=== PATIENT | male | born 1980 | race American Indian/Alaskan Native ===

== ENCOUNTER 2018-06-05 06:22 | Inpatient (IN) | payer OTHER ==
[2018-06-05] MEDS ORDERED: levETIRAcetam 1000mg/100ml NS 100 ML IV ONE (06:27)
[2018-06-05] MEDS ORDERED: Etomidate 20 mg/10ml Inj IV ONE ×2 (06:36→06:37)
[2018-06-05] MEDS ORDERED: Succinylcholine 200 mg/10 ml Inj IV ONE ×2 (06:36→07:03)
[2018-06-05 06:47] LABS: BASO # 0.05 K/mm3 (0.0-2.0); BASO % 0.5 % (0.0-3.0); EOS # 0.3 (0.0-0.7); EOS % 2.5 % (1.5-5.0); GRAN # 2.96 (1.4-6.5); GRAN % 29.9 % (50.0-68.0); HEMOGLOBIN 14.9 g/dL (14.0-18.0); LYMPH # 5.9 (1.2-3.4); LYMPH % 59.8 % (22.0-35.0); MEAN CELL VOLUME 102.4 fl (80.0-105.0); MEAN CORPUSCULAR HEMOGLOBIN 33.1 pg (25.0-35.0); MEAN CORPUSCULAR HGB CONC 32.3 g/dl (31.0-37.0); MEAN PLATELET VOLUME 11.8 fl (7.0-11.0); MONO # 0.7 (0.1-0.6); MONO % 7.3 % (1.0-6.0); RBC 4.5 10^6/uL (3.5-6.1); RED CELL DISTRIBUTION WIDTH 14.3 % (11.5-14.5); WHITE BLOOD COUNT 9.9 10^3/uL (4.5-11.0)
[2018-06-05 06:52] LABS: ALB/GLOB RATIO 1.4 (1.1-1.8); ALBUMIN 5.2 g/dL (3.0-4.8); ALT/SGPT 12 U/L (7-56); AST/SGOT 26 U/L (17-59); BLOOD UREA NITROGEN 11 mg/dL (7-21); CALCIUM 10.8 mg/dL (8.4-10.5); GFR NON-AFRICAN AMERICAN > 60
[2018-06-05] MEDS ORDERED: PHENobarbital 130 mg/ml Inj Syringe IV ONE (07:01)
[2018-06-05] MEDS ORDERED: Etomidate 20 mg/10ml Inj IVP STA (07:03)
[2018-06-05] MEDS ORDERED: PHENobarbital 130 mg/ml Inj Syringe IV STA (07:05)
[2018-06-05] MEDS ORDERED: Propofol 10 mg/ml 1,000 MG/100 ML VIAL ONE (07:16)
[2018-06-05] MEDS: Propofol 10 mg/ml 1,000 MG/100 ML VIAL IV PRN ×2 (07:16→18:51)
[2018-06-05] MEDS ORDERED: Propofol 10 mg/ml 500 MG/50 ML VIAL IV PRN (07:30)
--- NOTE | 2018-06-05 07:43 | ED PDOC ---
Physical Exam Vital Signs Reviewed: Yes Vital Signs Temp Pulse Resp Pulse Ox 06/05/18 06:22 98 F 120 H 20 100 Temperature: Afebrile Blood Pressure: Normal Pulse: Tachycardic Respiratory Rate: Normal Appearance: Positive for: Well-Appearing, Non-Toxic, Comfortable Pain Distress: None Mental Status: Positive for: Alert and Oriented X 3 Finger Stick Blood Glucose: 213 Medical Decision Making ED Course and Treatment: 06/05/18 07:43 Case endorsed to me by Dr. Larry. Patient presented to the emergency department s/p seizure. - Lab Interpretations Lab Results: 06/05/18 06:25 06/05/18 06:25 Lab Results 06/05/18 06:25: Valproic Acid 11 L 06/05/18 06:25: Sodium 145, Potassium 4.1, Chloride 107, Carbon Dioxide 11 L, Anion Gap 31 H, BUN 11, Creatinine 1.0, Est GFR ( Amer) > 60, Est GFR (Non-Af Amer) > 60, Random Glucose 221 H, Calcium 10.8 H, Magnesium 2.2, Total Bilirubin 0.4, AST 26, ALT 12, Alkaline Phosphatase 56, Total Protein 9.0 H, Albumin 5.2 H, Globulin 3.8, Albumin/Globulin Ratio 1.4 06/05/18 06:25: WBC 9.9, RBC 4.50, Hgb 14.9, Hct 46.1, MCV 102.4, MCH 33.1, MCHC 32.3, RDW 14.3, Plt Count 175, MPV 11.8 H, Gran % 29.9 L, Lymph % (Auto) 59.8 H, [place] % (Auto) 7.3 H, Eos % (Auto) 2.5, Baso % (Auto) 0.5, Gran # 2.96, Lymph # (Auto) 5.9 H, [place] # (Auto) 0.7 H, Eos # (Auto) 0.3, Baso # (Auto) 0.05 - RAD Interpretation Radiology Orders: 06/05/18 06:26 HEAD W/O CONTRAST [CT] Stat 06/05/18 06:27 CHEST PORTABLE [RAD] Stat - Medication Orders Current Medication Orders: Propofol (Diprivan) 500 mg in 50 mls @ 2.368 mls/hr IV .Q21H7M PRN; Protocol PRN Reason: TITRATE PER MD ORDER Midazolam 100 mg/100ml in NS (Midazolam 100 Mg/100ml In Ns) 100 mg in 100 mls @ 1 mls/hr IV .Q24H PRN; Protocol PRN Reason: Agitation Lorazepam (Ativan) 2 mg IVP ONCE ONE; Protocol Stop: 06/05/18 06:31 Discontinued Medications Atropine Sulfate (Atropine) 0.5 mg IVP STAT STA Stop: 06/05/18 06:48 Etomidate (Amidate) 30 mg IVP STAT STA Stop: 06/05/18 07:04 Last Admin: 06/05/18 06:40 Dose: 30 mg IVP Administration Document 06/05/18 06:40 RD (Rec: 06/05/18 07:28 RD [id number]) Charges for Administration # of IVP Administrations 1 Levetiracetam (Keppra 1000mg/100ml Ns) 100 mls @ 440 mls/hr IV ONCE ONE Stop: 06/05/18 06:40 Last Admin: 06/05/18 06:27 Dose: 440 mls/hr eMAR Start Stop Document 06/05/18 06:27 RD (Rec: 06/05/18 07:29 RD [id number]) Intravenous Solution Start Date 06/05/18 Start Time 06:27 Lorazepam (Ativan) 2 mg IVP STAT STA Stop: 06/05/18 06:27 Last Admin: 06/05/18 06:27 Dose: 2 mg IVP Administration Document 06/05/18 06:27 RD (Rec: 06/05/18 07:29 RD [facility] [id number]) Charges for Administration # of IVP Administrations 1 Phenobarbital (Phenobarbital Inj) 120 mg IV ONCE STA Stop: 06/05/18 07:06 Last Admin: 06/05/18 07:05 Dose: 120 mg eMAR Start Stop Document 06/05/18 07:05 RD (Rec: 06/05/18 07:31 RD [id number]) Intravenous Solution Start Date 06/05/18 Start Time 07:05 Succinylcholine Chloride (Quelicin) 120 mg IV ONCE ONE Stop: 06/05/18 07:04 Last Admin: 06/05/18 06:55 Dose: 120 mg eMAR Start Stop Document 06/05/18 06:55 RD (Rec: 06/05/18 07:28 RD [id number]) Intravenous Solution Start Date 06/05/18 Start Time 06:55 Disposition/Present on Arrival - Present on Arrival History of DVT/PE: No History of Uncontrolled Diabetes: No Urinary Catheter: No History of Decub. Ulcer: No History Surgical Site Infection Following: None - Disposition
--- NOTE | 2018-06-05 07:46 | CP.PCM.CON ---
<Bebeto Paulson - Last Filed: 06/05/18 11:38> History of Present Illness - History of Present Illness History of Present Illness: Bebeto Paulson, PGY-1 Consult Note for ICU CC: Seizure HPI: 37 M with reported past medical history of seizures, hypothyroid and manic bipolar disorder who presents in midst of tonic-clonic seizure-like activity. Patient last seizure was 1.5 years ago and patient is compliant with medications per family member. Patient was intubated and sedated at time of evaluation in ED so further ROS was per report and family member. Patient recently began taking Depakote last week in addition to his Keppra. Patient received Ativan, Keppra, and Phenobarbital in the ED in order to subdue seizure. Tongue biting and urinary incontinence were noted. PMHx: As above PSHx: Thyroidectomy All: NKDA Social: Marijuana use daily, no ETOH or illicit drug use Fam Hx: DM on mom's side Meds: Synthroid 75 mcg, Keppra, Depakote Review of Systems - Review of Systems Review of Systems: 12 point ROS unable to be ascertained due to clinical condition Past Patient History - Past Social History Smoking Status: Unknown If Ever Smoked - NEUROLOGICAL Hx Seizures: Yes (Epilepsy) - PSYCHIATRIC Hx Depression: No Hx Emotional Abuse: No Hx Physical Abuse: No Hx Substance Use: No Meds Allergies/Adverse Reactions: Allergies Allergy/AdvReac Type Severity Reaction Status Date / Time No Known Allergies Allergy Verified 06/05/18 06:26 - Medications Medications: Current Medications Propofol (Diprivan) 500 mg in 50 mls @ 2.368 mls/hr IV .Q21H7M PRN; Protocol PRN Reason: TITRATE PER MD ORDER Midazolam 100 mg/100ml in NS (Midazolam 100 Mg/100ml In Ns) 100 mg in 100 mls @ 1 mls/hr IV .Q24H PRN; Protocol PRN Reason: Agitation Physical Exam - Constitutional Appears: In Acute Distress, Other (Intubated) - Head Exam Head Exam: ATRAUMATIC - Eye Exam Eye Exam: Normal appearance Pupil Exam: Miosis - ENT Exam ENT Exam: Mucous Membranes Moist Additional comments: tongue biting apparent - Respiratory Exam Respiratory Exam: Clear to Auscultation Bilateral, NORMAL BREATHING PATTERN. absent: Rales, Wheezes, Respiratory Distress - Cardiovascular Exam Cardiovascular Exam: RRR, +S1, +S2 - GI/Abdominal Exam GI & Abdominal Exam: Normal Bowel Sounds, Soft. absent: Distended, Guarding, Tenderness - Exam Additional comments: Urinary incontinence noted - Back Exam Back exam: NORMAL INSPECTION. absent: CVA tenderness (L), CVA tenderness (R) - Additional Findings Additional findings: Further PE unable to be ascertained as he can't follow commands Results - Vital Signs Recent Vital Signs: Last Vital Signs Temp 98 F 06/05/18 06:22 Pulse 120 H 06/05/18 06:22 Resp 20 06/05/18 06:22 BP Pulse Ox 100 06/05/18 06:22 - Labs Result Diagrams: 06/05/18 06:25 06/05/18 06:25 Labs: Laboratory Results - last 24 hr 06/05/18 06/05/18 06/05/18 06:25 06:25 06:25 WBC 9.9 RBC 4.50 Hgb 14.9 Hct 46.1 MCV 102.4 MCH 33.1 MCHC 32.3 RDW 14.3 Plt Count 175 MPV 11.8 H Gran % 29.9 L Lymph % (Auto) 59.8 H [place] % (Auto) 7.3 H Eos % (Auto) 2.5 Baso % (Auto) 0.5 Gran # 2.96 Lymph # (Auto) 5.9 H Vance # (Auto) 0.7 H Eos # (Auto) 0.3 Baso # (Auto) 0.05 Sodium 145 Potassium 4.1 Chloride 107 Carbon Dioxide 11 L Anion Gap 31 H BUN 11 Creatinine 1.0 Est GFR ( Amer) > 60 Est GFR (Non-Af Amer) > 60 Random Glucose 221 H Calcium 10.8 H Magnesium 2.2 Total Bilirubin 0.4 AST 26 ALT 12 Alkaline Phosphatase 56 Total Protein 9.0 H Albumin 5.2 H Globulin 3.8 Albumin/Globulin Ratio 1.4 Valproic Acid 11 L Assessment & Plan - Assessment and Plan (Free Text) Assessment: Mr. Gannon is a 37 year old male with past medical history of seizures who presents in a tonic-clonic seizure. Patient was sedated on Propofol and Versed, and intubated and transferred to ICU for monitoring. Neuro: - Neurology consult - Dr. Singh Caraballo -recs appreciated - 06/05/18 CT head negative - Keppra 750 mg IV BID, 1 g received in ED this AM, will consider adding Depakote per Neuro recommendations - NS @ 150 cc/hr - Total CK 271 - EEG ordered - UDS pos for barbs and cannabinoids, Valproate level <11 - AAOx3, no FND, moving extremities past midline. - Monitor neuro status. Neurochecks Q2H, seizure, aspiration precautions in place - Reorient patient as necessary. Cardio: - EKG on admission sinus tach @ 111 - RRR, normotensive, no signs of HD compromise - Maintain MAP>65. - Monitor for S/S, HD compromise. Pulm: - Acute resp distress, intubated on mechanical ventilation 100/5/20/450 on propofol and versed drips - 06/05/18 ABG shows resp acidosis - Maintain O2 saturation>92%. Vent: protective lung ventilation strategy, seizure and aspiration precautions - 06/05/18 CXR: no acute process, no consolidation, f/u final report - Elevate bed to 30 degrees GI: - NPO, NS @ 150 cc/hr - Protonix /Nephro: - BUN/Cr stable - UA - RBCs - Good urine output - Replete electrolytes as needed. - Maintain euvolemia. Endocrinology: - Hypothyroid on Synthroid 75 mcg - f/u TSH - Random glucose: 221, 97 - Maintain euglycemia. Heme/Onc: - H/H stable at 14.9 - No signs of HD compromise. - Continue monitoring H/H ID: - Afebrile, no leukocytosis - Monitor for signs and symptoms of infection. DVT prophylaxis: Lovenox GI prophylaxis: Protonix IV Patient seen, case reviewed and plan approved by Dr. Porter. Bebeto Paulson, PGY-1 <Shahram Porter - Last Filed: 06/05/18 14:47> Meds - Medications Medications: Current Medications Enoxaparin Sodium (Lovenox) 40 mg SC DAILY [facility]; Protocol Last Admin: 06/05/18 09:37 Dose: 40 mg Midazolam 100 mg/100ml in NS (Midazolam 100 Mg/100ml In Ns) 100 mg in 100 mls @ 1 mls/hr IV .Q24H PRN; Protocol PRN Reason: Agitation Last Titration: 06/05/18 12:32 Dose: Infused Propofol (Diprivan) 1,000 mg in 100 mls @ 2.368 mls/hr IV .Q24H PRN; Protocol PRN Reason: TITRATE PER MD ORDER Last Titration: 06/05/18 09:34 Dose: 30 mcg/kg/min, 14.207 mls/hr Sodium Chloride (Sodium Chloride 0.9%) 1,000 mls @ 150 mls/hr IV .Q6H40M JIGNESH Last Admin: 06/05/18 10:50 Dose: 150 mls/hr Levetiracetam 750 mg/ Sodium (Chloride) 107.5 mls @ 430 mls/hr IV Q12H JIGNESH Levothyroxine Sodium (Synthroid) 75 mcg PO 0600 JIGNESH Pantoprazole Sodium (Protonix Inj) 40 mg IVP DAILY JIGNESH Last Admin: 06/05/18 09:36 Dose: 40 mg Results - Vital Signs Recent Vital Signs: Last Vital Signs Temp 98.8 F 06/05/18 12:00 Pulse 70 06/05/18 12:00 Resp 20 06/05/18 10:00 BP 135/87 06/05/18 12:00 Pulse Ox 100 06/05/18 12:00 - Labs Result Diagrams: 06/05/18 11:34 06/05/18 11:34 Labs: Laboratory Results - last 24 hr 06/05/18 06/05/18 06/05/18 06:25 06:25 06:25 WBC 9.9 RBC 4.50 Hgb 14.9 Hct 46.1 MCV 102.4 MCH 33.1 MCHC 32.3 RDW 14.3 Plt Count 175 MPV 11.8 H Gran % 29.9 L Lymph % (Auto) 59.8 H [place] % (Auto) 7.3 H Eos % (Auto) 2.5 Baso % (Auto) 0.5 Gran # 2.96 Lymph # (Auto) 5.9 H Vance # (Auto) 0.7 H Eos # (Auto) 0.3 Baso # (Auto) 0.05 pCO2 pO2 HCO3 ABG pH ABG Total CO2 ABG O2 Saturation ABG Base Excess ABG Potassium VBG pH VBG pCO2 VBG HCO3 VBG Total CO2 VBG O2 Sat (Calc) VBG Base Excess VBG Potassium Glucose Lactate FiO2 Sodium 145 Potassium 4.1 Chloride 107 Carbon Dioxide 11 L Anion Gap 31 H BUN 11 Creatinine 1.0 Est GFR ( Amer) > 60 Est GFR (Non-Af Amer) > 60 Random Glucose 221 H Calcium 10.8 H Phosphorus Magnesium 2.2 Total Bilirubin 0.4 AST 26 ALT 12 Alkaline Phosphatase 56 Total Creatine Kinase CK-MB (CK-2) CK-MB (CK-2) % Total Protein 9.0 H Albumin 5.2 H Globulin 3.8 Albumin/Globulin Ratio 1.4 TSH 3rd Generation Arterial Blood Potassium Venous Blood Potassium Urine Color Urine Appearance Urine pH Ur Specific [place] Urine Protein Urine Glucose (UA) Urine Ketones Urine Blood Urine Nitrate Urine Bilirubin Urine Urobilinogen Ur Leukocyte Esterase Urine RBC Urine WBC Ur Epithelial Cells Urine Bacteria Urine Opiates Screen Urine Methadone Screen Ur Barbiturates Screen Valproic Acid 11 L Ur Phencyclidine Scrn Ur Amphetamines Screen U Benzodiazepines Scrn U Oth Cocaine Metabols U Cannabinoids Screen 06/05/18 06/05/18 06/05/18 07:30 08:05 08:05 WBC RBC Hgb Hct MCV MCH MCHC RDW Plt Count MPV Gran % Lymph % (Auto) Vance % (Auto) Eos % (Auto) Baso % (Auto) Gran # Lymph # (Auto) Vance # (Auto) Eos # (Auto) Baso # (Auto) pCO2 pO2 HCO3 ABG pH ABG Total CO2 ABG O2 Saturation ABG Base Excess ABG Potassium VBG pH VBG pCO2 VBG HCO3 VBG Total CO2 VBG O2 Sat (Calc) VBG Base Excess VBG Potassium Glucose Lactate FiO2 Sodium Potassium Chloride Carbon Dioxide Anion Gap BUN Creatinine Est GFR ( Amer) Est GFR (Non-Af Amer) Random Glucose Calcium Phosphorus 5.9 H Magnesium Total Bilirubin AST ALT Alkaline Phosphatase Total Creatine Kinase CK-MB (CK-2) CK-MB (CK-2) % Total Protein Albumin Globulin Albumin/Globulin Ratio TSH 3rd Generation Arterial Blood Potassium Venous Blood Potassium Urine Color Yellow Urine Appearance Clear Urine pH 6.0 Ur Specific [place] >= 1.030 Urine Protein Trace H Urine Glucose (UA) 500 H Urine Ketones Negative Urine Blood Moderate H Urine Nitrate Negative Urine Bilirubin Negative Urine Urobilinogen 0.2 Ur Leukocyte Esterase Negative Urine RBC 15 - 20 H Urine WBC 0 - 2 Ur Epithelial Cells None Urine Bacteria Mod Urine Opiates Screen Negative Urine Methadone Screen Negative Ur Barbiturates Screen Positive H Valproic Acid Ur Phencyclidine Scrn Negative Ur Amphetamines Screen Negative U Benzodiazepines Scrn Negative U Oth Cocaine Metabols Negative U Cannabinoids Screen Positive H 06/05/18 06/05/18 06/05/18 08:15 11:34 11:34 WBC 10.6 RBC 4.49 Hgb 14.9 Hct 42.8 MCV 95.3 D MCH 33.2 MCHC 34.8 RDW 13.8 Plt Count 134 MPV 11.3 H Gran % 79.0 H Lymph % (Auto) 15.0 L [place]ance % (Auto) 5.7 Eos % (Auto) 0.2 L Baso % (Auto) 0.1 Gran # 8.37 H Lymph # (Auto) 1.6 Vance # (Auto) 0.6 Eos # (Auto) 0.0 Baso # (Auto) 0.01 pCO2 42 pO2 313.0 H HCO3 18.4 L ABG pH 7.25 L ABG Total CO2 19.7 L ABG O2 Saturation 99.8 H ABG Base Excess -8.5 L ABG Potassium 4.4 VBG pH VBG pCO2 VBG HCO3 VBG Total CO2 VBG O2 Sat (Calc) VBG Base Excess VBG Potassium Glucose 158 H Lactate 4.6 H* FiO2 100 Sodium 135.0 140 Potassium 4.3 Chloride 107.0 108 H Carbon Dioxide 22 Anion Gap 14 BUN 11 Creatinine 0.9 Est GFR ( Amer) > 60 Est GFR (Non-Af Amer) > 60 Random Glucose 97 Calcium 9.4 Phosphorus Magnesium Total Bilirubin 0.8 AST 28 ALT 17 Alkaline Phosphatase 52 Total Creatine Kinase CK-MB (CK-2) CK-MB (CK-2) % Total Protein 7.9 Albumin 4.4 Globulin 3.5 Albumin/Globulin Ratio 1.3 TSH 3rd Generation Arterial Blood Potassium 4.4 Venous Blood Potassium Urine Color Urine Appearance Urine pH Ur Specific [place] Urine Protein Urine Glucose (UA) Urine Ketones Urine Blood Urine Nitrate Urine Bilirubin Urine Urobilinogen Ur Leukocyte Esterase Urine RBC Urine WBC Ur Epithelial Cells Urine Bacteria Urine Opiates Screen Urine Methadone Screen Ur Barbiturates Screen Valproic Acid Ur Phencyclidine Scrn Ur Amphetamines Screen U Benzodiazepines Scrn U Oth Cocaine Metabols U Cannabinoids Screen 06/05/18 06/05/18 06/05/18 11:34 12:35 13:40 WBC RBC Hgb Hct MCV MCH MCHC RDW Plt Count MPV Gran % Lymph % (Auto) Vance % (Auto) Eos % (Auto) Baso % (Auto) Gran # Lymph # (Auto) Vance # (Auto) Eos # (Auto) Baso # (Auto) pCO2 pO2 76 H HCO3 ABG pH ABG Total CO2 ABG O2 Saturation ABG Base Excess ABG Potassium VBG pH 7.32 VBG pCO2 45.0 VBG HCO3 23.2 VBG Total CO2 24.6 VBG O2 Sat (Calc) 96.6 H VBG Base Excess -3.1 L VBG Potassium 4.2 Glucose 91 Lactate 4.1 H* FiO2 21.0 Sodium 140.0 Potassium Chloride 105.0 Carbon Dioxide Anion Gap BUN Creatinine Est GFR ( Amer) Est GFR (Non-Af Amer) Random Glucose Calcium Phosphorus Magnesium Total Bilirubin AST ALT Alkaline Phosphatase Total Creatine Kinase 271 H CK-MB (CK-2) 1.6 CK-MB (CK-2) % Cancelled Total Protein Albumin Globulin Albumin/Globulin Ratio TSH 3rd Generation 32.70 H Arterial Blood Potassium Venous Blood Potassium 4.2 Urine Color Urine Appearance Urine pH Ur Specific [place] Urine Protein Urine Glucose (UA) Urine Ketones Urine Blood Urine Nitrate Urine Bilirubin Urine Urobilinogen Ur Leukocyte Esterase Urine RBC Urine WBC Ur Epithelial Cells Urine Bacteria Urine Opiates Screen Urine Methadone Screen Ur Barbiturates Screen Valproic Acid Ur Phencyclidine Scrn Ur Amphetamines Screen U Benzodiazepines Scrn U Oth Cocaine Metabols U Cannabinoids Screen Assessment & Plan - Assessment and Plan (Free Text) Assessment: Patient seen and examined on rounds with resident, agree with note with marilia stoddard additions/exceptions: Patient is 37yo male with PMHx hypothyroid, Bipolar disorder, seizzure disorder, on Depakote, and Keppra, presented with tonic clonic seizure, last severla minutes, not broke by [facility], subsequently intubated in ER. Currently intubated, sedated on Propofol, Versed. CT head done, negative Labs, imaging, chart reviewed. Status Epilepticus Seizure disorder Hypothyroid Elevated lactate Recommend: - cont with vent support, low tidal vol ventilation, duonebs PRN, daily sedation vacation, ABG acceptable - Panculture, UCx, BCx, check Procal - BP control - IVF - Propofol, Versed - Keppra 750mg IV BID - VEEG - neurology consult - increase synthroid dose to 88mcg - neuro checks - check CPK - GI ppx - DVT ppx - Monitor in MICU Critical care time 40 minutes
--- NOTE | 2018-06-05 07:50 | ED PDOC ---
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 Patient was initially seen by Dr. Larry, who treated the patient with Ativan, kepra, Succinylcholine, and etomidate. History ws obtained via Dr. Larry and EMS. witnessed general seizure. Patient arrived to the emergency department status epilepticus. Dr. Larry attempted several intubations without success. Full HPI and ROS limited due to patient's condition. Time/Duration: Prior to Arrival Symptom Onset: Sudden Symptom Course: Unchanged Activities at Onset: Light Context: Home Past Medical History - Provider Review Nursing Documentation Reviewed: Yes - Neurological Hx Seizures: Yes (Epilepsy) - Psychiatric Hx Depression: No Hx Emotional Abuse: No Hx Physical Abuse: No Hx Substance Use: No - Suicidal Assessment Feels Threatened In Home Enviroment: No Family/Social History - Physician Review Nursing Documentation Reviewed: Yes Family/Social History: Unknown Family HX Smoking Status: Unknown If Ever Smoked Hx Alcohol Use: Yes Hx Substance Use: No Hx Substance Use Treatment: Yes Allergies/Home Meds Allergies/Adverse Reactions: Allergies No Known Allergies Allergy (Verified 06/05/18 06:26) Home Medications: Home Meds Medication Instructions Recorded Confirmed RX: No Known Home Med 12/06/11 12/06/11 Review of Systems - Review of Systems Systems not reviewed;Unavailable: Acuity of Condition Physical Exam Vital Signs Reviewed: Yes Vital Signs Temp Pulse Resp Pulse Ox 06/05/18 06:22 98 F 120 H 20 100 Temperature: Afebrile Pulse: Tachycardic Respiratory Rate: Normal Appearance: Positive for: Well-Appearing, Non-Toxic, Comfortable Pain Distress: None Mental Status: Positive for: Alert and Oriented X 3 Finger Stick Blood Glucose: 213 - Systems Exam Respiratory/Chest: Present: Other (No lung souns due to pt paralyzed ) Cardiovascular: Present: Regular Rate and Rhythm Upper Extremity: Present: Other (pt paralyzed) Lower Extremity: Present: Other (pt paralyzed) Neurological: Present: Other (unatained lorelei to paralyzation; unresponsive to verbal or painful stimuli) Medical Decision Making ED Course and Treatment: 06/05/18 07:56 Impression: 37 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 Plan: -- ABG -- CT Head -- EKG -- Labs -- Magnesium -- Phosphorous -- CXR -- Etomidate -- Ativan -- Atropine -- Diprivan -- levETIRAcetam -- PHENobarbital -- Succinylcholine -- Midazolam -- UA -- Reassess and disposition Progress Notes: PROCEDURE: INTUBATION Performed by the emergency provider Time: 07:00 Timeout: A timeout to verify the correct patient, procedure, and site was performed. Indication: pt parlayzed Pre-oxygenation: [id number] Medications: See MAR for details. ETT Size: 7.5 Confirmation: Cords directly visualized as tube passed, good bilateral breath sounds, positive CO2 detector color change, tube fogging, adequate chest rise, improving pulse oximetry reading, improved skin color, and absence of gastric sounds,. ETT Secured: The cuff was inflated and the tube was secured at the lip. Post-Procedure: There were no immediate complications. CXR Confirmation: Yes Additional PHENobarbital was administered. Case discussed with Dr. Porter, who accepts pt to his service. Case discussed with the Top Bottom Attaching Machine Operator, who accepts pt to ICU. 06/05/18 08:08 Patient was initially seen by Dr. John. he was already paralyzed, so the exam is limited. Apparently, he was switched from Keppra to Depakote for his seizures. He was in status epilepticus this morning. I added phenobarbital to the Keppra and Ativan which the patient already received. He had already been paralyzed with etomidate and succinylcholine. He was intubated by myself with a 7.5 cuffed ET tube with a glidescope on the first attempt. Consultation with the hospitalist and mechanical process engineer and patient will be admitted to the intensive care unit for status epilepticus. His Depakote level is only 11. 06/05/18 08:29 EKG shows sinus tachycardia rate approximately 110 with poor R-wave progression and no acute ST or T-wave changes. 06/05/18 12:44 - Lab Interpretations Lab Results: 06/05/18 06:25 06/05/18 06:25 Lab Results 06/05/18 06:25: Valproic Acid 11 L 01/07/19 06:25: Sodium 145, Potassium 4.1, Chloride 107, Carbon Dioxide 11 L, Anion Gap 31 H, BUN 11, Creatinine 1.0, Est GFR ( Amer) > 60, Est GFR (Non-Af Amer) > 60, Random Glucose 221 H, Calcium 10.8 H, Magnesium 2.2, Total Bilirubin 0.4, AST 26, ALT 12, Alkaline Phosphatase 56, Total Protein 9.0 H, Albumin 5.2 H, Globulin 3.8, Albumin/Globulin Ratio 1.4 06/05/18 06:25: WBC 9.9, RBC 4.50, Hgb 14.9, Hct 46.1, MCV 102.4, MCH 33.1, MCHC 32.3, RDW 14.3, Plt Count 175, MPV 11.8 H, Gran % 29.9 L, Lymph % (Auto) 59.8 H, [place] % (Auto) 7.3 H, Eos % (Auto) 2.5, Baso % (Auto) 0.5, Gran # 2.96, Lymph # (Auto) 5.9 H, [place] # (Auto) 0.7 H, Eos # (Auto) 0.3, Baso # (Auto) 0.05 - RAD Interpretation Radiology Orders: 06/05/18 06:26 HEAD W/O CONTRAST [CT] Stat 06/05/18 06:27 CHEST PORTABLE [RAD] Stat - Medication Orders Current Medication Orders: Propofol (Diprivan) 500 mg in 50 mls @ 2.368 mls/hr IV .Q21H7M PRN; Protocol PRN Reason: TITRATE PER MD ORDER Midazolam 100 mg/100ml in NS (Midazolam 100 Mg/100ml In Ns) 100 mg in 100 mls @ 1 mls/hr IV .Q24H PRN; Protocol PRN Reason: Agitation Propofol (Diprivan) 1,000 mg in 100 mls @ 2.368 mls/hr IV .Q24H PRN; Protocol PRN Reason: TITRATE PER MD ORDER Discontinued Medications Atropine Sulfate (Atropine) 0.5 mg IVP STAT STA Stop: 06/05/18 06:48 Etomidate (Amidate) 30 mg IVP STAT STA Stop: 06/05/18 07:04 Last Admin: 06/05/18 06:40 Dose: 30 mg IVP Administration Document 06/05/18 06:40 RD (Rec: 06/05/18 07:28 RD [id number]) Charges for Administration # of IVP Administrations 1 Levetiracetam (Keppra 1000mg/100ml Ns) 100 mls @ 440 mls/hr IV ONCE ONE Stop: 06/05/18 06:40 Last Admin: 06/05/18 06:27 Dose: 440 mls/hr eMAR Start Stop Document 06/05/18 06:27 RD (Rec: 06/05/18 07:29 RD [id number]) Intravenous Solution Start Date 06/05/18 Start Time 06:27 Lorazepam (Ativan) 2 mg IVP STAT STA Stop: 06/05/18 06:27 Last Admin: 06/05/18 06:27 Dose: 2 mg IVP Administration Document 06/05/18 06:27 RD (Rec: 06/05/18 07:29 [id number]) Charges for Administration # of IVP Administrations 1 Lorazepam (Ativan) 2 mg IVP ONCE ONE; Protocol Stop: 06/05/18 06:31 Phenobarbital (Phenobarbital Inj) 120 mg IV ONCE STA Stop: 06/05/18 07:06 Last Admin: 06/05/18 07:05 Dose: 120 mg eMAR Start Stop Document 06/05/18 07:05 RD (Rec: 06/05/18 07:31 RD [id number]) Intravenous Solution Start Date 06/05/18 Start Time 07:05 Succinylcholine Chloride (Quelicin) 120 mg IV ONCE ONE Stop: 06/05/18 07:04 Last Admin: 06/05/18 06:55 Dose: 120 mg eMAR Start Stop Document 06/05/18 06:55 RD (Rec: 06/05/18 07:28 RD [id number]) Intravenous Solution Start Date 06/05/18 Start Time 06:55 - Scribe Statement The provider has reviewed the documentation as recorded by the Scribevelyn Brooks All medical record entries made by the Scribevelyn were at my direction and personally dictated by me. I have reviewed the chart and agree that the record accurately reflects my personal performance of the history, physical exam, medical decision making, and the department course for this patient. I have also personally directed, reviewed, and agree with the discharge instructions and disposition. Disposition/Present on Arrival - Present on Arrival Any Indicators Present on Arrival: No History of DVT/PE: No History of Uncontrolled Diabetes: No Urinary Catheter: No History of Decub. Ulcer: No History Surgical Site Infection Following: None - Disposition Have Diagnosis and Disposition been Completed?: Yes Diagnosis: Status epilepticus Disposition: HOSPITALIZED Disposition Time: 08:05 Patient Plan: Admission, ICU Condition: CRITICAL
[2018-06-05 08:18] LABS: URINE APPEARANCE CLEAR (CLEAR); URINE BILIRUBIN NEGATIVE (NEGATIVE); URINE BLOOD MODERATE (NEGATIVE); URINE COLOR YELLOW (YELLOW); URINE GLUCOSE (UA) 500 mg/dL (NEGATIVE); URINE LEUKOCYTE ESTERASE NEGATIVE Leu/uL (NEGATIVE); URINE PROTEIN TRACE mg/dL (<30 mg/dL); URINE UROBILINOGEN 0.2 E.U./dL (<1 E.U./dL)
[2018-06-05 08:21] LABS: ARTERIAL BLOOD GAS HCO3 18.4 mmol/L (21-28); ARTERIAL BLOOD GAS O2 SAT 99.8 % (95-98); ARTERIAL BLOOD GAS PCO2 42 mm/Hg (35-45); ARTERIAL BLOOD GAS PH 7.25 (7.35-7.45); ARTERIAL BLOOD GAS TCO2 19.7 mmol.L (22-28)
[2018-06-05 08:27] LABS: ARTERIAL BLOOD GAS FIO2 100 %
[2018-06-05 08:36] LABS: URINE BACTERIA MOD /hpf; URINE RBC 15 - 20 /hpf (0-2); URINE WBC 0 - 2 /hpf (0-6)
[2018-06-05 08:41] LABS: BARBITURATES, UR POSITIVE (NEGATIVE); BENZODIAZEPINES, UR NEGATIVE (NEGATIVE); OPIATES, UR NEGATIVE (NEGATIVE); PHENCYCLIDINE, UR NEGATIVE (NEGATIVE)
--- NOTE | 2018-06-05 09:26 | CT ---
Date of service: 06/05/2018 PROCEDURE: CT HEAD WITHOUT CONTRAST. HISTORY: seizure COMPARISON: None available. TECHNIQUE: Axial computed tomography images were obtained through the head/brain without intravenous contrast. Radiation dose: Total exam DLP = 1037.65 mGy-cm. This CT exam was performed using one or more of the following dose reduction techniques: Automated exposure control, adjustment of the mA and/or kV according to patient size, and/or use of iterative reconstruction technique. FINDINGS: HEMORRHAGE: No intracranial hemorrhage. BRAIN: No mass effect or edema. No atrophy or chronic microvascular ischemic changes. VENTRICLES: Unremarkable. No hydrocephalus. CALVARIUM: Unremarkable. PARANASAL SINUSES: Unremarkable as visualized. No significant inflammatory changes. MASTOID AIR CELLS: Unremarkable as visualized. No inflammatory changes. OTHER FINDINGS: None. IMPRESSION: Normal CT of the Head.
[2018-06-05] MEDS: Midazolam 100 mg/100ml in NS 100 MG/100 ML SOL IV PRN (09:32)
[2018-06-05] MEDS: Enoxaparin 40 mg Syringe SC SCH (09:37)
--- NOTE | 2018-06-05 09:42 | RAD ---
Date of service: 06/05/2018 HISTORY: seizure COMPARISON: No prior. FINDINGS: LUNGS: No active pulmonary disease. PLEURA: No significant pleural effusion identified, no pneumothorax apparent. CARDIOVASCULAR: No aortic atherosclerotic calcification present. Normal cardiac size. No pulmonary vascular congestion. OSSEOUS STRUCTURES: No significant abnormalities. VISUALIZED UPPER ABDOMEN: Normal. OTHER FINDINGS: Endotracheal and nasogastric tubes are in satisfactory position IMPRESSION: No active disease.
[2018-06-05] MEDS: Sodium Chloride 0.9% 1,000 ML IV SCH ×3 (10:50→23:20)
[2018-06-05 11:43] LABS: BASO # 0.01 K/mm3 (0.0-2.0); BASO % 0.1 % (0.0-3.0); EOS % 0.2 % (1.5-5.0); GRAN # 8.37 (1.4-6.5); HEMOGLOBIN 14.9 g/dL (14.0-18.0); LYMPH # 1.6 (1.2-3.4); MEAN CELL VOLUME 95.3 fl (80.0-105.0); MEAN CORPUSCULAR HEMOGLOBIN 33.2 pg (25.0-35.0); MEAN CORPUSCULAR HGB CONC 34.8 g/dl (31.0-37.0); MEAN PLATELET VOLUME 11.3 fl (7.0-11.0); MONO # 0.6 (0.1-0.6); MONO % 5.7 % (1.0-6.0); RBC 4.49 10^6/uL (3.5-6.1); RED CELL DISTRIBUTION WIDTH 13.8 % (11.5-14.5); WHITE BLOOD COUNT 10.6 10^3/uL (4.5-11.0)
[2018-06-05 11:45] LABS: VENOUS BLOOD GAS BASE EXCESS -3.1 mmol/L (0.0-2.0); VENOUS BLOOD GAS PO2 76 mm/Hg (30-55); VENOUS BLOOD PH 7.32 (7.32-7.43)
[2018-06-05 12:01] LABS: ALB/GLOB RATIO 1.3 (1.1-1.8); ALBUMIN 4.4 g/dL (3.0-4.8); ALT/SGPT 17 U/L (7-56); AST/SGOT 28 U/L (17-59); BLOOD UREA NITROGEN 11 mg/dL (7-21); CALCIUM 9.4 mg/dL (8.4-10.5); GFR NON-AFRICAN AMERICAN > 60
[2018-06-05 12:40] VITALS: BMI 25.5
--- NOTE | 2018-06-05 13:19 | CARD ---
APPROVED REPORT Date of service: 06/05/2018 EKG Measurement Heart [id number] <Conclusion> Sinus tachycardia Nonspecific T wave changes Abnormal ECG
[2018-06-05 13:23] LABS: CK-MB 1.6 ng/mL (0.0-3.6)
--- NOTE | 2018-06-05 14:14 | CP.PCM.HP ---
History of Present Illness - History of Present Illness History of Present Illness: Vaughn Gongora PGY1, History and Physical for Dr Munguia Pt is a 37yo male with a PMH of seizures, hyperthyroid s/p thyroidectomy, bipola r, IED who presents via EMS after his girlfriend witnessed him having a seizure. Majority of history was obatained from pt girlfriend and also from chart review. Pt presented to the emergency department after being intubated before arrival. Pt has had 2 seizures in the past, which started in 2014. Since being diagnosed and initiating treatment, pt has not experienced any seizures. Pt has recently started to take Keppra for newly diagnosed bipolar disorder. Pt reportedly bite his tongue during his seizure. PMH: seizures hyperthyroid s/p thyroidectomy, bipolar, IED PSH: Thyroidectomy 2014 SH: denies tobacco, denies alcohol, admits to marijuana use FH: unable to obtain Allergies: NKDA Home Meds: Levothyroxine, Keppra, Depakote Present on Admission - Present on Admission Any Indicators Present on Admission: No Review of Systems - Review of Systems Review of Systems: a 12 point ROS was obtained and added to the HPI where appropriate Past Patient History - Past Social History Smoking Status: Unknown If Ever Smoked - CARDIAC Hx Cardiac Disorders: No Hx Angina: No Hx Cardia Arrhythmia: No Hx Circulatory Problems: No Hx Congestive Heart Failure: No Hx Heart Murmur: No Hx Heart Transplant: No Hx Hypercholesterolemia: No Hx Hypertension: No Hx Internal Defibrillator: No Hx Mitral Valve Prolapse: No Hx Pacemaker: No Hx Peripheral Edema: No Hx Peripheral Vascular Disease: No - PULMONARY Hx Respiratory Disorders: No Hx Asthma: No Hx Bronchitis: No Hx Chronic Obstructive Pulmonary Disease (COPD): No Hx Emphysema: No Hx Pneumonia: No Hx Respiratory Aspiration: No Hx Respiratory Tract Infection: No Hx Sleep Apnea: No Hx Tuberculosis: No - NEUROLOGICAL Hx Seizures: Yes (Epilepsy) - HEENT Hx HEENT Problems: No Hx Blind: No Hx Cataracts: No Hx Deafness: No Hx Difficulty Chewing: No Hx Epistaxis: No Hx Glaucoma: No Hx Macular Degeneration: No - RENAL Hx Chronic Kidney Disease: No - ENDOCRINE/METABOLIC Hx Endocrine Disorders: Yes Hx Hypothyroidism: Yes (thyroidectomy) - HEMATOLOGICAL/ONCOLOGICAL Hx Blood Disorders: No Hx AIDS: No Hx Anemia: No Hx Cancer: No Hx Chemotherapy: No Hx Cirrhosis: No Hx Hepatitis A: No Hx Hepatitis B: No Hx Hepatitis C: No Hx Human Immunodeficiency Virus (HIV): No Hx Metastesis: No Hx Shingles: No Hx Unexplained Bleeding: No - INTEGUMENTARY Hx Dermatological Problems: No Hx Basil Cell: No Hx Eczema: No Hx Melanoma: No Hx Psoriasis: No Hx Squamous Cell: No - MUSCULOSKELETAL/RHEUMATOLOGICAL Hx Musculoskeletal Disorders: No Hx Arthritis: No Hx Back Pain: No Hx Degenerative Joint Disease: No Hx Falls: No Hx Fractures: No Hx Gout: No Hx Herniated Disk: No Hx Myasthenia Gravis: No Hx Osteoarthritis: No Hx Osteomyelitis: No Hx Osteoporosis: No Hx Rhabdomyolysis: No Hx Spinal Stenosis: No Hx Unsteady Gait: No - GASTROINTESTINAL Hx Gastrointestinal Disorders: No - GENITOURINARY/GYNECOLOGICAL Hx Genitourinary Disorders: No - PSYCHIATRIC Hx Depression: No Hx Emotional Abuse: No Hx Physical Abuse: No Hx Substance Use: No - SURGICAL HISTORY Hx Surgeries: Yes (Thyroidectomy) Hx Cardiac Catheterization: No Hx Coronary Stent: No Meds Allergies/Adverse Reactions: Allergies Allergy/AdvReac Type Severity Reaction Status Date / Time No Known Allergies Allergy Verified 06/05/18 06:26 Physical Exam - Head Exam Head Exam: ATRAUMATIC, NORMOCEPHALIC - Eye Exam Pupil Exam: Miosis - ENT Exam ENT Exam: Mucous Membranes Moist Additional comments: NG tube in place - Neck Exam Neck exam: Positive for: Normal Inspection - Respiratory Exam Respiratory Exam: Clear to Auscultation Bilateral. absent: Accessory Muscle Use Additional comments: intubated - Cardiovascular Exam Cardiovascular Exam: RRR, +S1, +S2. absent: Diastolic murmur, Systolic Murmur - GI/Abdominal Exam GI & Abdominal Exam: Normal Bowel Sounds, Soft - Extremities Exam Extremities exam: Positive for: pedal pulses present. Negative for: pedal edema - Skin Skin Exam: Dry, Intact, Warm Results - Vital Signs Recent Vital Signs: Last Vital Signs Temp 98.8 F 06/05/18 12:00 Pulse 70 06/05/18 12:00 Resp 20 06/05/18 10:00 BP 135/87 06/05/18 12:00 Pulse Ox 100 06/05/18 12:00 - Labs Result Diagrams: 06/05/18 11:34 06/05/18 11:34 Labs: Laboratory Results - last 24 hr 06/05/18 06/05/18 06/05/18 06:25 06:25 06:25 WBC 9.9 RBC 4.50 Hgb 14.9 Hct 46.1 MCV 102.4 MCH 33.1 MCHC 32.3 RDW 14.3 Plt Count 175 MPV 11.8 H Gran % 29.9 L Lymph % (Auto) 59.8 H [place] % (Auto) 7.3 H Eos % (Auto) 2.5 Baso % (Auto) 0.5 Gran # 2.96 Lymph # (Auto) 5.9 H [place] # (Auto) 0.7 H Eos # (Auto) 0.3 Baso # (Auto) 0.05 pCO2 pO2 HCO3 ABG pH ABG Total CO2 ABG O2 Saturation ABG Base Excess ABG Potassium VBG pH VBG pCO2 VBG HCO3 VBG Total CO2 VBG O2 Sat (Calc) VBG Base Excess VBG Potassium Glucose Lactate FiO2 Sodium 145 Potassium 4.1 Chloride 107 Carbon Dioxide 11 L Anion Gap 31 H BUN 11 Creatinine 1.0 Est GFR ( Amer) > 60 Est GFR (Non-Af Amer) > 60 Random Glucose 221 H Calcium 10.8 H Phosphorus Magnesium 2.2 Total Bilirubin 0.4 AST 26 ALT 12 Alkaline Phosphatase 56 Total Creatine Kinase CK-MB (CK-2) CK-MB (CK-2) % Total Protein 9.0 H Albumin 5.2 H Globulin 3.8 Albumin/Globulin Ratio 1.4 Arterial Blood Potassium Venous Blood Potassium Urine Color Urine Appearance Urine pH Ur Specific [place] Urine Protein Urine Glucose (UA) Urine Ketones Urine Blood Urine Nitrate Urine Bilirubin Urine Urobilinogen Ur Leukocyte Esterase Urine RBC Urine WBC Ur Epithelial Cells Urine Bacteria Urine Opiates Screen Urine Methadone Screen Ur Barbiturates Screen Valproic Acid 11 L Ur Phencyclidine Scrn Ur Amphetamines Screen U Benzodiazepines Scrn U Oth Cocaine Metabols U Cannabinoids Screen 06/05/18 06/05/18 06/05/18 07:30 08:05 08:05 WBC RBC Hgb Hct MCV MCH MCHC RDW Plt Count MPV Gran % Lymph % (Auto) [place] % (Auto) Eos % (Auto) Baso % (Auto) Gran # Lymph # (Auto) [place] # (Auto) Eos # (Auto) Baso # (Auto) pCO2 pO2 HCO3 ABG pH ABG Total CO2 ABG O2 Saturation ABG Base Excess ABG Potassium VBG pH VBG pCO2 VBG HCO3 VBG Total CO2 VBG O2 Sat (Calc) VBG Base Excess VBG Potassium Glucose Lactate FiO2 Sodium Potassium Chloride Carbon Dioxide Anion Gap BUN Creatinine Est GFR ( Amer) Est GFR (Non-Af Amer) Random Glucose Calcium Phosphorus 5.9 H Magnesium Total Bilirubin AST ALT Alkaline Phosphatase Total Creatine Kinase CK-MB (CK-2) CK-MB (CK-2) % Total Protein Albumin Globulin Albumin/Globulin Ratio Arterial Blood Potassium Venous Blood Potassium Urine Color Yellow Urine Appearance Clear Urine pH 6.0 Ur Specific [place] >= 1.030 Urine Protein Trace H Urine Glucose (UA) 500 H Urine Ketones Negative Urine Blood Moderate H Urine Nitrate Negative Urine Bilirubin Negative Urine Urobilinogen 0.2 Ur Leukocyte Esterase Negative Urine RBC 15 - 20 H Urine WBC 0 - 2 Ur Epithelial Cells None Urine Bacteria Mod Urine Opiates Screen Negative Urine Methadone Screen Negative Ur Barbiturates Screen Positive H Valproic Acid Ur Phencyclidine Scrn Negative Ur Amphetamines Screen Negative U Benzodiazepines Scrn Negative U Oth Cocaine Metabols Negative U Cannabinoids Screen Positive H 06/05/18 06/05/18 06/05/18 08:15 11:34 11:34 WBC 10.6 RBC 4.49 Hgb 14.9 Hct 42.8 MCV 95.3 D MCH 33.2 MCHC 34.8 RDW 13.8 Plt Count 134 MPV 11.3 H Gran % 79.0 H Lymph % (Auto) 15.0 L [place] % (Auto) 5.7 Eos % (Auto) 0.2 L Baso % (Auto) 0.1 Gran # 8.37 H Lymph # (Auto) 1.6 [place] # (Auto) 0.6 Eos # (Auto) 0.0 Baso # (Auto) 0.01 pCO2 42 pO2 313.0 H HCO3 18.4 L ABG pH 7.25 L ABG Total CO2 19.7 L ABG O2 Saturation 99.8 H ABG Base Excess -8.5 L ABG Potassium 4.4 VBG pH VBG pCO2 VBG HCO3 VBG Total CO2 VBG O2 Sat (Calc) VBG Base Excess VBG Potassium Glucose 158 H Lactate 4.6 H* FiO2 100 Sodium 135.0 140 Potassium 4.3 Chloride 107.0 108 H Carbon Dioxide 22 Anion Gap 14 BUN 11 Creatinine 0.9 Est GFR ( Amer) > 60 Est GFR (Non-Af Amer) > 60 Random Glucose 97 Calcium 9.4 Phosphorus Magnesium Total Bilirubin 0.8 AST 28 ALT 17 Alkaline Phosphatase 52 Total Creatine Kinase CK-MB (CK-2) CK-MB (CK-2) % Total Protein 7.9 Albumin 4.4 Globulin 3.5 Albumin/Globulin Ratio 1.3 Arterial Blood Potassium 4.4 Venous Blood Potassium Urine Color Urine Appearance Urine pH Ur Specific [place] Urine Protein Urine Glucose (UA) Urine Ketones Urine Blood Urine Nitrate Urine Bilirubin Urine Urobilinogen Ur Leukocyte Esterase Urine RBC Urine WBC Ur Epithelial Cells Urine Bacteria Urine Opiates Screen Urine Methadone Screen Ur Barbiturates Screen Valproic Acid Ur Phencyclidine Scrn Ur Amphetamines Screen U Benzodiazepines Scrn U Oth Cocaine Metabols U Cannabinoids Screen 06/05/18 06/05/18 11:34 12:35 WBC RBC Hgb Hct MCV MCH MCHC RDW Plt Count MPV Gran % Lymph % (Auto) [place] % (Auto) Eos % (Auto) Baso % (Auto) Gran # Lymph # (Auto) [place] # (Auto) Eos # (Auto) Baso # (Auto) pCO2 pO2 76 H HCO3 ABG pH ABG Total CO2 ABG O2 Saturation ABG Base Excess ABG Potassium VBG pH 7.32 VBG pCO2 45.0 VBG HCO3 23.2 VBG Total CO2 24.6 VBG O2 Sat (Calc) 96.6 H VBG Base Excess -3.1 L VBG Potassium 4.2 Glucose 91 Lactate 4.1 H* FiO2 21.0 Sodium 140.0 Potassium Chloride 105.0 Carbon Dioxide Anion Gap BUN Creatinine Est GFR ( Amer) Est GFR (Non-Af Amer) Random Glucose Calcium Phosphorus Magnesium Total Bilirubin AST ALT Alkaline Phosphatase Total Creatine Kinase 271 H CK-MB (CK-2) 1.6 CK-MB (CK-2) % Cancelled Total Protein Albumin Globulin Albumin/Globulin Ratio Arterial Blood Potassium Venous Blood Potassium 4.2 Urine Color Urine Appearance Urine pH Ur Specific [place] Urine Protein Urine Glucose (UA) Urine Ketones Urine Blood Urine Nitrate Urine Bilirubin Urine Urobilinogen Ur Leukocyte Esterase Urine RBC Urine WBC Ur Epithelial Cells Urine Bacteria Urine Opiates Screen Urine Methadone Screen Ur Barbiturates Screen Valproic Acid Ur Phencyclidine Scrn Ur Amphetamines Screen U Benzodiazepines Scrn U Oth Cocaine Metabols U Cannabinoids Screen Assessment & Plan - Assessment and Plan (Free Text) Assessment: Pt is a 37yo male with a PMH of seizures, hyperthyroid s/p thyroidectomy, b ipolar, IED who presents via EMS after his girlfriend witnessed him having a seizure. Plan: Seizures - pt admitted to ICU - GCS 5T - CT head negative - Keppra - NS@150 - EEG ordered - Valproate level <11 - lactate 4.1 - seizure precautions - aspiration precautions - pt intubated, continue to monitor - follow up blood cultures - follow up urine cultures - follow up procal - Neurology consult, Dr. Caraballo Hypothyroid - Synthroid - TSH 32.7 Ppx - Lovenox - Protonix Pt seen, examined, assessment and plan discussed with Dr Nilda Gongora PGY1, Internal Medicine Resident - Date & Time Date: 06/05/18 Time: 07:30
--- NOTE | 2018-06-05 18:04 | CON ---
DATE: 06/05/2018 NEUROLOGICAL CONSULT NOTE CHIEF COMPLAINT: Seizure. HISTORY OF PRESENT ILLNESS: This is a 37-year-old man known to our office with a past medical history of seizures, sleep deprivation induced with a recent MRI showing no acute intracranial abnormalities, hypothyroidism status post thyroidectomy resulting in hypothyroidism, bipolar disorder, IED, who presents via EMS with witnessed having seizures. The patient is positive for cannabis. The patient's last seizure was about one and a half years ago. The patient initially was started on Keppra 500 mg p.o. b.i.d. as now the patient has not been compliant. The patient had a GTC seizure and was admitted to the ICU with possible status. Continuous EEG has been ordered and his Keppra has been increased to 750 IV every 12 hours. Currently, no acute issues going on. Moving all extremities, but lethargic. ALLERGIES: NO KNOWN DRUG ALLERGIES. PAST MEDICAL HISTORY: A above. SOCIAL HISTORY: No illicit drug use, but smokes marijuana. FAMILY HISTORY: Noncontributory. HOME MEDICATIONS: Levothyroxine, Keppra, and Depakote for his mood disorder. LABS: Sodium is 140, potassium 4.3, chloride 108, carbon dioxide of 22, BUN of 11, creatinine of 0.9, random glucose of 97. PHYSICAL EXAMINATION: GENERAL: The patient is sitting up in bed, intubated, in no acute distress. VITAL SIGNS: Temperature 98.8, pulse rate of 70, blood pressure of 130/87, respiratory rate of 18. HEENT: Atraumatic and normocephalic. PERRLA. Extraocular muscles intact. NECK: Supple. No JVD. No adenopathy noted. LUNGS: Clear to auscultation. No adventitious sounds. HEART: S1 and S2. Normal rate and rhythm. No murmurs, rubs, or gallops. ABDOMEN: Soft, nontender, and nondistended. Bowel sounds are present. EXTREMITIES: No clubbing, no cyanosis. Peripheral pulses 2+ felt bilaterally. NEUROLOGICAL: The patient is intubated, on sedation, but taken off sedation. Moves all extremities. Toes are downgoing bilaterally. Cranial nerves II through XII are intact. Speech difficult to assess at this time. Coordination and gait deferred for now. DTRs are 2+. Toes are downgoing bilaterally. IMPRESSION: Complex partial seizures with secondary generalization. RECOMMENDATIONS: 1. Recommend to increase Keppra to 750 IV every 12 hours. 2. Maintain smoking cessation to the cannabis. 3. Continue continuous eeg 4. ICU mx. Thanks for this consult. Gurdeep Caraballo MD [facility]
[2018-06-05 18:05] LABS: ARTERIAL BLOOD GAS HCO3 20.9 mmol/L (21-28); ARTERIAL BLOOD GAS O2 SAT 99.5 % (95-98); ARTERIAL BLOOD GAS PCO2 28 mm/Hg (35-45); ARTERIAL BLOOD GAS PH 7.48 (7.35-7.45); ARTERIAL BLOOD GAS TCO2 21.8 mmol.L (22-28)
[2018-06-05] MEDS ORDERED: levETIRAcetam 1000mg/100ml NS 100 ML IV SCH (22:00)
[2018-06-06] MEDS: Midazolam 100 mg/100ml in NS 100 MG/100 ML SOL IV PRN (04:15)
[2018-06-06] MEDS: Levothyroxine 88 MCG TAB PO SCH (05:32)
[2018-06-06] MEDS: Sodium Chloride 0.9% 1,000 ML IV SCH (05:42)
[2018-06-06] MEDS ORDERED: Levothyroxine 88 MCG TAB PO SCH (06:00)
[2018-06-06] MEDS ORDERED: Levothyroxine 75 MCG TAB PO SCH (06:00)
[2018-06-06 06:31] LABS: ARTERIAL BLOOD GAS HCO3 22.3 mmol/L (21-28); ARTERIAL BLOOD GAS HEMOGLOBIN 11.9 g/dL (11.7-17.4); ARTERIAL BLOOD GAS O2 CAPACITY 16.6 mL/dl (16-24); ARTERIAL BLOOD GAS O2 CONTENT 16.6 ML/dl (15-23); ARTERIAL BLOOD GAS PCO2 28 mm/Hg (35-45); ARTERIAL BLOOD GAS PH 7.51 (7.35-7.45); ARTERIAL BLOOD GAS TCO2 23.2 mmol.L (22-28)
[2018-06-06 06:45] LABS: BASO # 0.01 K/mm3 (0.0-2.0); BASO % 0.1 % (0.0-3.0); GRAN # 11.72 (1.4-6.5); GRAN % 84.3 % (50.0-68.0); HEMOGLOBIN 13.7 g/dL (14.0-18.0); LYMPH # 1.5 (1.2-3.4); LYMPH % 10.4 % (22.0-35.0); MEAN CELL VOLUME 95.5 fl (80.0-105.0); MEAN CORPUSCULAR HEMOGLOBIN 32.5 pg (25.0-35.0); MEAN PLATELET VOLUME 11.6 fl (7.0-11.0); MONO # 0.7 (0.1-0.6); MONO % 5.2 % (1.0-6.0); RBC 4.22 10^6/uL (3.5-6.1); WHITE BLOOD COUNT 13.9 10^3/uL (4.5-11.0)
--- NOTE | 2018-06-06 06:55 | CP.CCUPN ---
<Bebeto Paulson - Last Filed: 06/06/18 12:34> CCU Subjective - Physician Review Subjective (Free Text): Bebeto Paulson PGY-1 Progress Note for ICU Patient seen and evaluated at bedside. No acute events reported overnight. Girlfriend at bedside. Patient is intubated on ventilation support, on Propofol and Midazolam drips. On continuous video EEG currently. No further ROS able to be obtained. CCU Objective - Vital Signs / Intake & Output Vital Signs (Last 4 hours): Vital Signs Temp Pulse Resp BP Pulse Ox 06/06/18 05:36 98.2 F 64 100 06/06/18 05:35 98.2 F 67 100 06/06/18 05:34 98.2 F 77 20 100 06/06/18 05:33 98.1 F 76 20 100 06/06/18 05:32 98.1 F 77 20 100 06/06/18 05:31 98.1 F 78 20 100 06/06/18 05:30 98.1 F 79 20 100 06/06/18 05:29 98.1 F 79 20 100 06/06/18 05:28 98.1 F 79 20 100 06/06/18 05:27 98.1 F 81 20 100 06/06/18 05:26 98.1 F 80 20 100 06/06/18 05:25 98.1 F 80 20 100 06/06/18 05:24 98.1 F 79 20 100 06/06/18 05:23 98.1 F 78 20 100 06/06/18 05:22 98.1 F 79 16 100 06/06/18 05:21 98.1 F 76 20 100 06/06/18 05:20 98.1 F 76 13 100 06/06/18 05:19 98.1 F 73 7 L 100 06/06/18 05:18 98.1 F 68 100 06/06/18 05:17 98.1 F 72 100 06/06/18 05:16 98.1 F 75 100 06/06/18 05:15 98.1 F 79 25 H 100 06/06/18 05:14 97.9 F 82 18 100 06/06/18 05:13 97.9 F 95 H 17 100 06/06/18 05:12 97.9 F 89 24 100 06/06/18 05:11 97.9 F 88 36 H 100 06/06/18 05:10 97.9 F 77 23 100 06/06/18 05:09 97.9 F 70 20 100 06/06/18 05:08 97.9 F 73 26 H 100 06/06/18 05:07 97.9 F 74 20 100 06/06/18 05:06 97.9 F 77 20 100 06/06/18 05:05 98.1 F 77 20 100 06/06/18 05:04 98.1 F 77 20 100 06/06/18 05:03 98.1 F 77 20 100 06/06/18 05:02 98.1 F 78 21 100 06/06/18 05:01 98.1 F 76 20 100 06/06/18 05:00 120/77 06/06/18 04:59 98.1 F 79 20 100 06/06/18 04:58 98.1 F 78 20 100 06/06/18 04:57 98.1 F 79 21 100 06/06/18 04:56 98.1 F 78 20 100 06/06/18 04:55 98.1 F 76 20 100 06/06/18 04:54 98.1 F 78 20 100 06/06/18 04:53 98.1 F 77 20 100 06/06/18 04:52 98.1 F 77 20 100 06/06/18 04:51 98.1 F 77 20 100 06/06/18 04:50 98.2 F 76 20 100 06/06/18 04:49 98.2 F 77 20 100 06/06/18 04:48 98.2 F 77 20 100 06/06/18 04:47 98.2 F 77 20 100 06/06/18 02:50 99.5 F 83 100 Intake and Output (Last 8hrs): Intake & Output 06/05/18 06/05/18 06/06/18 14:59 22:59 06:59 Intake Total 150 1600 Output Total 1100 Balance 150 500 Weight 80.739 kg Intake: IV 150 1600 Left Forearm 300 Right Antecubital 1300 Oral 0 Output: Urine 1100 Urethral (Dutta) 1100 Other: Voiding Method Indwelling Catheter # Bowel Movements 0 - Physical Exam Physical Exam Limitations: Positive for: Other (Intubated, mechanically ventilated) Head: Positive for: Atraumatic Extroacular Muscles: Negative for: EOMI (unable to be ascertained) Mouth: Positive for: Moist Mucous Membranes, Drooling Pharnyx: Positive for: Other (NGT in place, draining. Intubated at 50/5/20/450) Respiratory/Chest: Positive for: Other (No lung souns due to pt paralyzed ) Cardiovascular: Positive for: Regular Rate and Rhythm, Normal S1, S2 Abdomen: Negative for: Distention, Guarding Upper Extremity: Positive for: Other (pt sedated) Lower Extremity: Positive for: Other (pt sedated) Neurological: Positive for: Other (unresponsive to verbal or painful stimuli) Skin: Positive for: Warm, Dry Psychiatric: Negative for: Alert, Oriented x 3 - Medications Active Medications: Active Medications Generic Name Dose Route Start Last Admin Trade Name Freq PRN Reason Stop Dose Admin Enoxaparin Sodium 40 mg 06/05/18 10:00 06/05/18 09:37 Lovenox SC 40 mg DAILY JIGNESH Administration Protocol Midazolam 100 mg/100ml in NS 100 mg in 100 mls @ 1 mls/hr 06/05/18 07:30 06/06/18 04:15 Midazolam 100 Mg/100ml In Ns IV 5 mg/hr .Q24H PRN 5 mls/hr Agitation Administration Protocol 1 MG/HR Propofol 1,000 mg in 100 mls @ 2.368 mls/hr 06/05/18 07:45 06/05/18 18:51 Diprivan IV 40 mcg/kg/min .Q24H PRN 18.942 mls/hr TITRATE PER MD ORDER Administration Protocol 5 MCG/KG/MIN Sodium Chloride 1,000 mls @ 150 mls/hr 06/05/18 10:00 06/06/18 05:42 Sodium Chloride 0.9% IV 150 mls/hr .Q6H40M JIGNESH Administration Levetiracetam 750 mg/ Sodium 107.5 mls @ 430 mls/hr 06/05/18 18:00 06/06/18 05:32 Chloride IV 430 mls/hr Q12H JIGNESH Administration Levothyroxine Sodium 88 mcg 06/05/18 14:43 06/06/18 05:32 Synthroid PO 88 mcg 0600 JIGNEHS Administration Pantoprazole Sodium 40 mg 06/05/18 10:00 06/05/18 09:36 Protonix Inj IVP 40 mg DAILY JIGNESH Administration - Patient Studies Lab Studies: Lab Studies 06/06/18 06/05/18 06/05/18 Range/Units 06:15 18:02 15:00 WBC (4.5-11.0) 10^3/uL RBC (3.5-6.1) 10^6/uL Hgb (14.0-18.0) g/dL Hct (42.0-52.0) % MCV (80.0-105.0) fl MCH (25.0-35.0) pg MCHC (31.0-37.0) g/dl RDW (11.5-14.5) % Plt Count (120.0-450.0) 10^3/uL MPV (7.0-11.0) fl Gran % (50.0-68.0) % Lymph % (Auto) (22.0-35.0) % [place] % (Auto) (1.0-6.0) % Eos % (Auto) (1.5-5.0) % Baso % (Auto) (0.0-3.0) % Gran # (1.4-6.5) Lymph # (Auto) (1.2-3.4) [place] # (Auto) (0.1-0.6) Eos # (Auto) (0.0-0.7) Baso # (Auto) (0.0-2.0) K/mm3 pCO2 28 L 28 L (35-45) mm/Hg pO2 178.0 H 137.0 H (80-100) mm/Hg HCO3 22.3 20.9 L (21-28) mmol/L ABG pH 7.51 H 7.48 H (7.35-7.45) ABG Total CO2 23.2 21.8 L (22-28) mmol.L ABG O2 Saturation 100.0 H 99.5 H (95-98) % ABG O2 Content 16.6 (15-23) ML/dl ABG Base Excess 0.2 -1.4 (-2.0-3.0) mmol/L ABG Hemoglobin 11.9 (11.7-17.4) g/dL ABG Carboxyhemoglobin 1.7 H (0.5-1.5) % POC ABG HHb (Measured) 0 (0-5) % ABG Methemoglobin 1.4 (0.0-3.0) % ABG O2 Capacity 16.6 (16-24) mL/dl ABG Potassium 2.7 L (3.6-5.2) mmol/L VBG pH (7.32-7.43) VBG pCO2 (40-60) VBG HCO3 (21-28) mmol/l VBG Total CO2 (22-28) mmol.L VBG O2 Sat (Calc) (40-65) % VBG Base Excess (0.0-2.0) mmol/L VBG Potassium (3.6-5.2) mmol/L Hgb O2 Saturation 96.9 (95.0-98.0) % Glucose 92 (75-110) mg/dl Lactate 0.8 (0.7-2.1) mmol/L Mechanical Rate 20 FiO2 50.0 50.0 % Tidal Volume 450 PEEP 5 Sodium 141.0 (132-148) mmol/L Potassium (3.6-5.0) mmol/L Chloride 112.0 H (98-107) mmol/L Carbon Dioxide (21-33) mmol/L Anion Gap (10-20) BUN (7-21) mg/dL Creatinine (0.8-1.5) mg/dl Est GFR ( Amer) Est GFR (Non-Af Amer) Random Glucose (70-110) mg/dL Calcium (8.4-10.5) mg/dL Phosphorus (2.5-4.5) mg/dL Magnesium (1.7-2.2) mg/dL Total Bilirubin (0.2-1.3) mg/dL AST (17-59) U/L ALT (7-56) U/L Alkaline Phosphatase (38-126) U/L Total Creatine Kinase (35-230) U/L CK-MB (CK-2) (0.0-3.6) ng/mL CK-MB (CK-2) % Total Protein (5.8-8.3) g/dL Albumin (3.0-4.8) g/dL Globulin gm/dL Albumin/Globulin Ratio (1.1-1.8) Free T4 0.58 L (0.78-2.19) ng/dL TSH 3rd Generation (0.46-4.68) mIU/mL Arterial Blood Potassium 2.7 L (3.6-5.2) mmol/L Venous Blood Potassium (3.6-5.2) mmol/L Urine Color (YELLOW) Urine Appearance (CLEAR) Urine pH (4.7-8.0) Ur Specific [place] (1.005-1.035) Urine Protein (<30 mg/dL) mg/dL Urine Glucose (UA) (NEGATIVE) mg/dL Urine Ketones (NEGATIVE) mg/dL Urine Blood (NEGATIVE) Urine Nitrate (NEGATIVE) Urine Bilirubin (NEGATIVE) Urine Urobilinogen (<1 E.U./dL) E.U./dL Ur Leukocyte Esterase (NEGATIVE) Diamond/uL Urine RBC (0-2) /hpf Urine WBC (0-6) /hpf Ur Epithelial Cells (0-5) /hpf Urine Bacteria (NONE) /hpf Urine Opiates Screen (NEGATIVE) Urine Methadone Screen (NEGATIVE) Ur Barbiturates Screen (NEGATIVE) Valproic Acid (50.0-100.0) ug/mL Ur Phencyclidine Scrn (NEGATIVE) Ur Amphetamines Screen (NEGATIVE) U Benzodiazepines Scrn (NEGATIVE) U Oth Cocaine Metabols (NEGATIVE) U Cannabinoids Screen (NEGATIVE) 06/05/18 06/05/18 06/05/18 Range/Units 13:40 12:35 11:34 WBC (4.5-11.0) 10^3/uL RBC (3.5-6.1) 10^6/uL Hgb (14.0-18.0) g/dL Hct (42.0-52.0) % MCV (80.0-105.0) fl MCH (25.0-35.0) pg MCHC (31.0-37.0) g/dl RDW (11.5-14.5) % Plt Count (120.0-450.0) 10^3/uL MPV (7.0-11.0) fl Gran % (50.0-68.0) % Lymph % (Auto) (22.0-35.0) % [place] % (Auto) (1.0-6.0) % Eos % (Auto) (1.5-5.0) % Baso % (Auto) (0.0-3.0) % Gran # (1.4-6.5) Lymph # (Auto) (1.2-3.4) [place] # (Auto) (0.1-0.6) Eos # (Auto) (0.0-0.7) Baso # (Auto) (0.0-2.0) K/mm3 pCO2 (35-45) mm/Hg pO2 76 H (80-100) mm/Hg HCO3 (21-28) mmol/L ABG pH (7.35-7.45) ABG Total CO2 (22-28) mmol.L ABG O2 Saturation (95-98) % ABG O2 Content (15-23) ML/dl ABG Base Excess (-2.0-3.0) mmol/L ABG Hemoglobin (11.7-17.4) g/dL ABG Carboxyhemoglobin (0.5-1.5) % POC ABG HHb (Measured) (0-5) % ABG Methemoglobin (0.0-3.0) % ABG O2 Capacity (16-24) mL/dl ABG Potassium (3.6-5.2) mmol/L VBG pH 7.32 (7.32-7.43) VBG pCO2 45.0 (40-60) VBG HCO3 23.2 (21-28) mmol/l VBG Total CO2 24.6 (22-28) mmol.L VBG O2 Sat (Calc) 96.6 H (40-65) % VBG Base Excess -3.1 L (0.0-2.0) mmol/L VBG Potassium 4.2 (3.6-5.2) mmol/L Hgb O2 Saturation (95.0-98.0) % Glucose 91 (75-110) mg/dl Lactate 4.1 H* (0.7-2.1) mmol/L Mechanical Rate FiO2 21.0 % Tidal Volume PEEP Sodium 140.0 (132-148) mmol/L Potassium (3.6-5.0) mmol/L Chloride 105.0 (98-107) mmol/L Carbon Dioxide (21-33) mmol/L Anion Gap (10-20) BUN (7-21) mg/dL Creatinine (0.8-1.5) mg/dl Est GFR ( Amer) Est GFR (Non-Af Amer) Random Glucose (70-110) mg/dL Calcium (8.4-10.5) mg/dL Phosphorus (2.5-4.5) mg/dL Magnesium (1.7-2.2) mg/dL Total Bilirubin (0.2-1.3) mg/dL AST (17-59) U/L ALT (7-56) U/L Alkaline Phosphatase (38-126) U/L Total Creatine Kinase 271 H (35-230) U/L CK-MB (CK-2) 1.6 (0.0-3.6) ng/mL CK-MB (CK-2) % Cancelled Total Protein (5.8-8.3) g/dL Albumin (3.0-4.8) g/dL Globulin gm/dL Albumin/Globulin Ratio (1.1-1.8) Free T4 (0.78-2.19) ng/dL TSH 3rd Generation 32.70 H (0.46-4.68) mIU/mL Arterial Blood Potassium (3.6-5.2) mmol/L Venous Blood Potassium 4.2 (3.6-5.2) mmol/L Urine Color (YELLOW) Urine Appearance (CLEAR) Urine pH (4.7-8.0) Ur Specific [place] (1.005-1.035) Urine Protein (<30 mg/dL) mg/dL Urine Glucose (UA) (NEGATIVE) mg/dL Urine Ketones (NEGATIVE) mg/dL Urine Blood (NEGATIVE) Urine Nitrate (NEGATIVE) Urine Bilirubin (NEGATIVE) Urine Urobilinogen (<1 E.U./dL) E.U./dL Ur Leukocyte Esterase (NEGATIVE) Diamond/uL Urine RBC (0-2) /hpf Urine WBC (0-6) /hpf Ur Epithelial Cells (0-5) /hpf Urine Bacteria (NONE) /hpf Urine Opiates Screen (NEGATIVE) Urine Methadone Screen (NEGATIVE) Ur Barbiturates Screen (NEGATIVE) Valproic Acid (50.0-100.0) ug/mL Ur Phencyclidine Scrn (NEGATIVE) Ur Amphetamines Screen (NEGATIVE) U Benzodiazepines Scrn (NEGATIVE) U Oth Cocaine Metabols (NEGATIVE) U Cannabinoids Screen (NEGATIVE) 06/05/18 06/05/18 06/05/18 Range/Units 11:34 11:34 08:15 WBC 10.6 (4.5-11.0) 10^3/uL RBC 4.49 (3.5-6.1) 10^6/uL Hgb 14.9 (14.0-18.0) g/dL Hct 42.8 (42.0-52.0) % MCV 95.3 D (80.0-105.0) fl MCH 33.2 (25.0-35.0) pg MCHC 34.8 (31.0-37.0) g/dl RDW 13.8 (11.5-14.5) % Plt Count 134 (120.0-450.0) 10^3/uL MPV 11.3 H (7.0-11.0) fl Gran % 79.0 H (50.0-68.0) % Lymph % (Auto) 15.0 L (22.0-35.0) % [place] % (Auto) 5.7 (1.0-6.0) % Eos % (Auto) 0.2 L (1.5-5.0) % Baso % (Auto) 0.1 (0.0-3.0) % Gran # 8.37 H (1.4-6.5) Lymph # (Auto) 1.6 (1.2-3.4) [place] # (Auto) 0.6 (0.1-0.6) Eos # (Auto) 0.0 (0.0-0.7) Baso # (Auto) 0.01 (0.0-2.0) K/mm3 pCO2 42 (35-45) mm/Hg pO2 313.0 H (80-100) mm/Hg HCO3 18.4 L (21-28) mmol/L ABG pH 7.25 L (7.35-7.45) ABG Total CO2 19.7 L (22-28) mmol.L ABG O2 Saturation 99.8 H (95-98) % ABG O2 Content (15-23) ML/dl ABG Base Excess -8.5 L (-2.0-3.0) mmol/L ABG Hemoglobin (11.7-17.4) g/dL ABG Carboxyhemoglobin (0.5-1.5) % POC ABG HHb (Measured) (0-5) % ABG Methemoglobin (0.0-3.0) % ABG O2 Capacity (16-24) mL/dl ABG Potassium 4.4 (3.6-5.2) mmol/L VBG pH (7.32-7.43) VBG pCO2 (40-60) VBG HCO3 (21-28) mmol/l VBG Total CO2 (22-28) mmol.L VBG O2 Sat (Calc) (40-65) % VBG Base Excess (0.0-2.0) mmol/L VBG Potassium (3.6-5.2) mmol/L Hgb O2 Saturation (95.0-98.0) % Glucose 158 H (75-110) mg/dl Lactate 4.6 H* (0.7-2.1) mmol/L Mechanical Rate FiO2 100 % Tidal Volume PEEP Sodium 140 135.0 (132-148) mmol/L Potassium 4.3 (3.6-5.0) mmol/L Chloride 108 H 107.0 (98-107) mmol/L Carbon Dioxide 22 (21-33) mmol/L Anion Gap 14 (10-20) BUN 11 (7-21) mg/dL Creatinine 0.9 (0.8-1.5) mg/dl Est GFR ( Amer) > 60 Est GFR (Non-Af Amer) > 60 Random Glucose 97 (70-110) mg/dL Calcium 9.4 (8.4-10.5) mg/dL Phosphorus (2.5-4.5) mg/dL Magnesium (1.7-2.2) mg/dL Total Bilirubin 0.8 (0.2-1.3) mg/dL AST 28 (17-59) U/L ALT 17 (7-56) U/L Alkaline Phosphatase 52 (38-126) U/L Total Creatine Kinase (35-230) U/L CK-MB (CK-2) (0.0-3.6) ng/mL CK-MB (CK-2) % Total Protein 7.9 (5.8-8.3) g/dL Albumin 4.4 (3.0-4.8) g/dL Globulin 3.5 gm/dL Albumin/Globulin Ratio 1.3 (1.1-1.8) Free T4 (0.78-2.19) ng/dL TSH 3rd Generation (0.46-4.68) mIU/mL Arterial Blood Potassium 4.4 (3.6-5.2) mmol/L Venous Blood Potassium (3.6-5.2) mmol/L Urine Color (YELLOW) Urine Appearance (CLEAR) Urine pH (4.7-8.0) Ur Specific [place] (1.005-1.035) Urine Protein (<30 mg/dL) mg/dL Urine Glucose (UA) (NEGATIVE) mg/dL Urine Ketones (NEGATIVE) mg/dL Urine Blood (NEGATIVE) Urine Nitrate (NEGATIVE) Urine Bilirubin (NEGATIVE) Urine Urobilinogen (<1 E.U./dL) E.U./dL Ur Leukocyte Esterase (NEGATIVE) Diamond/uL Urine RBC (0-2) /hpf Urine WBC (0-6) /hpf Ur Epithelial Cells (0-5) /hpf Urine Bacteria (NONE) /hpf Urine Opiates Screen (NEGATIVE) Urine Methadone Screen (NEGATIVE) Ur Barbiturates Screen (NEGATIVE) Valproic Acid (50.0-100.0) ug/mL Ur Phencyclidine Scrn (NEGATIVE) Ur Amphetamines Screen (NEGATIVE) U Benzodiazepines Scrn (NEGATIVE) U Oth Cocaine Metabols (NEGATIVE) U Cannabinoids Screen (NEGATIVE) 06/05/18 06/05/18 06/05/18 Range/Units 08:05 08:05 07:30 WBC (4.5-11.0) 10^3/uL RBC (3.5-6.1) 10^6/uL Hgb (14.0-18.0) g/dL Hct (42.0-52.0) % MCV (80.0-105.0) fl MCH (25.0-35.0) pg MCHC (31.0-37.0) g/dl RDW (11.5-14.5) % Plt Count (120.0-450.0) 10^3/uL MPV (7.0-11.0) fl Gran % (50.0-68.0) % Lymph % (Auto) (22.0-35.0) % [place] % (Auto) (1.0-6.0) % Eos % (Auto) (1.5-5.0) % Baso % (Auto) (0.0-3.0) % Gran # (1.4-6.5) Lymph # (Auto) (1.2-3.4) [place] # (Auto) (0.1-0.6) Eos # (Auto) (0.0-0.7) Baso # (Auto) (0.0-2.0) K/mm3 pCO2 (35-45) mm/Hg pO2 (80-100) mm/Hg HCO3 (21-28) mmol/L ABG pH (7.35-7.45) ABG Total CO2 (22-28) mmol.L ABG O2 Saturation (95-98) % ABG O2 Content (15-23) ML/dl ABG Base Excess (-2.0-3.0) mmol/L ABG Hemoglobin (11.7-17.4) g/dL ABG Carboxyhemoglobin (0.5-1.5) % POC ABG HHb (Measured) (0-5) % ABG Methemoglobin (0.0-3.0) % ABG O2 Capacity (16-24) mL/dl ABG Potassium (3.6-5.2) mmol/L VBG pH (7.32-7.43) VBG pCO2 (40-60) VBG HCO3 (21-28) mmol/l VBG Total CO2 (22-28) mmol.L VBG O2 Sat (Calc) (40-65) % VBG Base Excess (0.0-2.0) mmol/L VBG Potassium (3.6-5.2) mmol/L Hgb O2 Saturation (95.0-98.0) % Glucose (75-110) mg/dl Lactate (0.7-2.1) mmol/L Mechanical Rate FiO2 % Tidal Volume PEEP Sodium (132-148) mmol/L Potassium (3.6-5.0) mmol/L Chloride (98-107) mmol/L Carbon Dioxide (21-33) mmol/L Anion Gap (10-20) BUN (7-21) mg/dL Creatinine (0.8-1.5) mg/dl Est GFR ( Amer) Est GFR (Non-Af Amer) Random Glucose (70-110) mg/dL Calcium (8.4-10.5) mg/dL Phosphorus 5.9 H (2.5-4.5) mg/dL Magnesium (1.7-2.2) mg/dL Total Bilirubin (0.2-1.3) mg/dL AST (17-59) U/L ALT (7-56) U/L Alkaline Phosphatase (38-126) U/L Total Creatine Kinase (35-230) U/L CK-MB (CK-2) (0.0-3.6) ng/mL CK-MB (CK-2) % Total Protein (5.8-8.3) g/dL Albumin (3.0-4.8) g/dL Globulin gm/dL Albumin/Globulin Ratio (1.1-1.8) Free T4 (0.78-2.19) ng/dL TSH 3rd Generation (0.46-4.68) mIU/mL Arterial Blood Potassium (3.6-5.2) mmol/L Venous Blood Potassium (3.6-5.2) mmol/L Urine Color Yellow (YELLOW) Urine Appearance Clear (CLEAR) Urine pH 6.0 (4.7-8.0) Ur Specific [place] >= 1.030 (1.005-1.035) Urine Protein Trace H (<30 mg/dL) mg/dL Urine Glucose (UA) 500 H (NEGATIVE) mg/dL Urine Ketones Negative (NEGATIVE) mg/dL Urine Blood Moderate H (NEGATIVE) Urine Nitrate Negative (NEGATIVE) Urine Bilirubin Negative (NEGATIVE) Urine Urobilinogen 0.2 (<1 E.U./dL) E.U./dL Ur Leukocyte Esterase Negative (NEGATIVE) Diamond/uL Urine RBC 15 - 20 H (0-2) /hpf Urine WBC 0 - 2 (0-6) /hpf Ur Epithelial Cells None (0-5) /hpf Urine Bacteria Mod (NONE) /hpf Urine Opiates Screen Negative (NEGATIVE) Urine Methadone Screen Negative (NEGATIVE) Ur Barbiturates Screen Positive H (NEGATIVE) Valproic Acid (50.0-100.0) ug/mL Ur Phencyclidine Scrn Negative (NEGATIVE) Ur Amphetamines Screen Negative (NEGATIVE) U Benzodiazepines Scrn Negative (NEGATIVE) U Oth Cocaine Metabols Negative (NEGATIVE) U Cannabinoids Screen Positive H (NEGATIVE) 06/05/18 06/05/18 Range/Units 06:25 06:25 WBC (4.5-11.0) 10^3/uL RBC (3.5-6.1) 10^6/uL Hgb (14.0-18.0) g/dL Hct (42.0-52.0) % MCV (80.0-105.0) fl MCH (25.0-35.0) pg MCHC (31.0-37.0) g/dl RDW (11.5-14.5) % Plt Count (120.0-450.0) 10^3/uL MPV (7.0-11.0) fl Gran % (50.0-68.0) % Lymph % (Auto) (22.0-35.0) % [place] % (Auto) (1.0-6.0) % Eos % (Auto) (1.5-5.0) % Baso % (Auto) (0.0-3.0) % Gran # (1.4-6.5) Lymph # (Auto) (1.2-3.4) [place] # (Auto) (0.1-0.6) Eos # (Auto) (0.0-0.7) Baso # (Auto) (0.0-2.0) K/mm3 pCO2 (35-45) mm/Hg pO2 (80-100) mm/Hg HCO3 (21-28) mmol/L ABG pH (7.35-7.45) ABG Total CO2 (22-28) mmol.L ABG O2 Saturation (95-98) % ABG O2 Content (15-23) ML/dl ABG Base Excess (-2.0-3.0) mmol/L ABG Hemoglobin (11.7-17.4) g/dL ABG Carboxyhemoglobin (0.5-1.5) % POC ABG HHb (Measured) (0-5) % ABG Methemoglobin (0.0-3.0) % ABG O2 Capacity (16-24) mL/dl ABG Potassium (3.6-5.2) mmol/L VBG pH (7.32-7.43) VBG pCO2 (40-60) VBG HCO3 (21-28) mmol/l VBG Total CO2 (22-28) mmol.L VBG O2 Sat (Calc) (40-65) % VBG Base Excess (0.0-2.0) mmol/L VBG Potassium (3.6-5.2) mmol/L Hgb O2 Saturation (95.0-98.0) % Glucose (75-110) mg/dl Lactate (0.7-2.1) mmol/L Mechanical Rate FiO2 % Tidal Volume PEEP Sodium 145 (132-148) mmol/L Potassium 4.1 (3.6-5.0) mmol/L Chloride 107 (98-107) mmol/L Carbon Dioxide 11 L (21-33) mmol/L Anion Gap 31 H (10-20) BUN 11 (7-21) mg/dL Creatinine 1.0 (0.8-1.5) mg/dl Est GFR ( Amer) > 60 Est GFR (Non-Af Amer) > 60 Random Glucose 221 H (70-110) mg/dL Calcium 10.8 H (8.4-10.5) mg/dL Phosphorus (2.5-4.5) mg/dL Magnesium 2.2 (1.7-2.2) mg/dL Total Bilirubin 0.4 (0.2-1.3) mg/dL AST 26 (17-59) U/L ALT 12 (7-56) U/L Alkaline Phosphatase 56 (38-126) U/L Total Creatine Kinase (35-230) U/L CK-MB (CK-2) (0.0-3.6) ng/mL CK-MB (CK-2) % Total Protein 9.0 H (5.8-8.3) g/dL Albumin 5.2 H (3.0-4.8) g/dL Globulin 3.8 gm/dL Albumin/Globulin Ratio 1.4 (1.1-1.8) Free T4 (0.78-2.19) ng/dL TSH 3rd Generation (0.46-4.68) mIU/mL Arterial Blood Potassium (3.6-5.2) mmol/L Venous Blood Potassium (3.6-5.2) mmol/L Urine Color (YELLOW) Urine Appearance (CLEAR) Urine pH (4.7-8.0) Ur Specific [place] (1.005-1.035) Urine Protein (<30 mg/dL) mg/dL Urine Glucose (UA) (NEGATIVE) mg/dL Urine Ketones (NEGATIVE) mg/dL Urine Blood (NEGATIVE) Urine Nitrate (NEGATIVE) Urine Bilirubin (NEGATIVE) Urine Urobilinogen (<1 E.U./dL) E.U./dL Ur Leukocyte Esterase (NEGATIVE) Diamond/uL Urine RBC (0-2) /hpf Urine WBC (0-6) /hpf Ur Epithelial Cells (0-5) /hpf Urine Bacteria (NONE) /hpf Urine Opiates Screen (NEGATIVE) Urine Methadone Screen (NEGATIVE) Ur Barbiturates Screen (NEGATIVE) Valproic Acid 11 L (50.0-100.0) ug/mL Ur Phencyclidine Scrn (NEGATIVE) Ur Amphetamines Screen (NEGATIVE) U Benzodiazepines Scrn (NEGATIVE) U Oth Cocaine Metabols (NEGATIVE) U Cannabinoids Screen (NEGATIVE) Laboratory Results - last 24 hr 06/05/18 06/05/18 06/05/18 06:25 06:25 07:30 WBC RBC Hgb Hct MCV MCH MCHC RDW Plt Count MPV Gran % Lymph % (Auto) [place] % (Auto) Eos % (Auto) Baso % (Auto) Gran # Lymph # (Auto) [place] # (Auto) Eos # (Auto) Baso # (Auto) pCO2 pO2 HCO3 ABG pH ABG Total CO2 ABG O2 Saturation ABG O2 Content ABG Base Excess ABG Hemoglobin ABG Carboxyhemoglobin POC ABG HHb (Measured) ABG Methemoglobin ABG O2 Capacity ABG Potassium VBG pH VBG pCO2 VBG HCO3 VBG Total CO2 VBG O2 Sat (Calc) VBG Base Excess VBG Potassium Hgb O2 Saturation Glucose Lactate Mechanical Rate FiO2 Tidal Volume PEEP Sodium 145 Potassium 4.1 Chloride 107 Carbon Dioxide 11 L Anion Gap 31 H BUN 11 Creatinine 1.0 Est GFR ( Amer) > 60 Est GFR (Non-Af Amer) > 60 Random Glucose 221 H Calcium 10.8 H Phosphorus 5.9 H Magnesium 2.2 Total Bilirubin 0.4 AST 26 ALT 12 Alkaline Phosphatase 56 Total Creatine Kinase CK-MB (CK-2) CK-MB (CK-2) % Total Protein 9.0 H Albumin 5.2 H Globulin 3.8 Albumin/Globulin Ratio 1.4 Free T4 TSH 3rd Generation Arterial Blood Potassium Venous Blood Potassium Urine Color Urine Appearance Urine pH Ur Specific [place] Urine Protein Urine Glucose (UA) Urine Ketones Urine Blood Urine Nitrate Urine Bilirubin Urine Urobilinogen Ur Leukocyte Esterase Urine RBC Urine WBC Ur Epithelial Cells Urine Bacteria Urine Opiates Screen Urine Methadone Screen Ur Barbiturates Screen Valproic Acid 11 L Ur Phencyclidine Scrn Ur Amphetamines Screen U Benzodiazepines Scrn U Oth Cocaine Metabols U Cannabinoids Screen 06/05/18 06/05/18 06/05/18 08:05 08:05 08:15 WBC RBC Hgb Hct MCV MCH MCHC RDW Plt Count MPV Gran % Lymph % (Auto) [place] % (Auto) Eos % (Auto) Baso % (Auto) Gran # Lymph # (Auto) [place] # (Auto) Eos # (Auto) Baso # (Auto) pCO2 42 pO2 313.0 H HCO3 18.4 L ABG pH 7.25 L ABG Total CO2 19.7 L ABG O2 Saturation 99.8 H ABG O2 Content ABG Base Excess -8.5 L ABG Hemoglobin ABG Carboxyhemoglobin POC ABG HHb (Measured) ABG Methemoglobin ABG O2 Capacity ABG Potassium 4.4 VBG pH VBG pCO2 VBG HCO3 VBG Total CO2 VBG O2 Sat (Calc) VBG Base Excess VBG Potassium Hgb O2 Saturation Glucose 158 H Lactate 4.6 H* Mechanical Rate FiO2 100 Tidal Volume PEEP Sodium 135.0 Potassium Chloride 107.0 Carbon Dioxide Anion Gap BUN Creatinine Est GFR ( Amer) Est GFR (Non-Af Amer) Random Glucose Calcium Phosphorus Magnesium Total Bilirubin AST ALT Alkaline Phosphatase Total Creatine Kinase CK-MB (CK-2) CK-MB (CK-2) % Total Protein Albumin Globulin Albumin/Globulin Ratio Free T4 TSH 3rd Generation Arterial Blood Potassium 4.4 Venous Blood Potassium Urine Color Yellow Urine Appearance Clear Urine pH 6.0 Ur Specific [place] >= 1.030 Urine Protein Trace H Urine Glucose (UA) 500 H Urine Ketones Negative Urine Blood Moderate H Urine Nitrate Negative Urine Bilirubin Negative Urine Urobilinogen 0.2 Ur Leukocyte Esterase Negative Urine RBC 15 - 20 H Urine WBC 0 - 2 Ur Epithelial Cells None Urine Bacteria Mod Urine Opiates Screen Negative Urine Methadone Screen Negative Ur Barbiturates Screen Positive H Valproic Acid Ur Phencyclidine Scrn Negative Ur Amphetamines Screen Negative U Benzodiazepines Scrn Negative U Oth Cocaine Metabols Negative U Cannabinoids Screen Positive H 06/05/18 06/05/18 06/05/18 11:34 11:34 11:34 WBC 10.6 RBC 4.49 Hgb 14.9 Hct 42.8 MCV 95.3 D MCH 33.2 MCHC 34.8 RDW 13.8 Plt Count 134 MPV 11.3 H Gran % 79.0 H Lymph % (Auto) 15.0 L [place] % (Auto) 5.7 Eos % (Auto) 0.2 L Baso % (Auto) 0.1 Gran # 8.37 H Lymph # (Auto) 1.6 [place] # (Auto) 0.6 Eos # (Auto) 0.0 Baso # (Auto) 0.01 pCO2 pO2 76 H HCO3 ABG pH ABG Total CO2 ABG O2 Saturation ABG O2 Content ABG Base Excess ABG Hemoglobin ABG Carboxyhemoglobin POC ABG HHb (Measured) ABG Methemoglobin ABG O2 Capacity ABG Potassium VBG pH 7.32 VBG pCO2 45.0 VBG HCO3 23.2 VBG Total CO2 24.6 VBG O2 Sat (Calc) 96.6 H VBG Base Excess -3.1 L VBG Potassium 4.2 Hgb O2 Saturation Glucose 91 Lactate 4.1 H* Mechanical Rate FiO2 21.0 Tidal Volume PEEP Sodium 140 140.0 Potassium 4.3 Chloride 108 H 105.0 Carbon Dioxide 22 Anion Gap 14 BUN 11 Creatinine 0.9 Est GFR ( Amer) > 60 Est GFR (Non-Af Amer) > 60 Random Glucose 97 Calcium 9.4 Phosphorus Magnesium Total Bilirubin 0.8 AST 28 ALT 17 Alkaline Phosphatase 52 Total Creatine Kinase CK-MB (CK-2) CK-MB (CK-2) % Total Protein 7.9 Albumin 4.4 Globulin 3.5 Albumin/Globulin Ratio 1.3 Free T4 TSH 3rd Generation Arterial Blood Potassium Venous Blood Potassium 4.2 Urine Color Urine Appearance Urine pH Ur Specific [place] Urine Protein Urine Glucose (UA) Urine Ketones Urine Blood Urine Nitrate Urine Bilirubin Urine Urobilinogen Ur Leukocyte Esterase Urine RBC Urine WBC Ur Epithelial Cells Urine Bacteria Urine Opiates Screen Urine Methadone Screen Ur Barbiturates Screen Valproic Acid Ur Phencyclidine Scrn Ur Amphetamines Screen U Benzodiazepines Scrn U Oth Cocaine Metabols U Cannabinoids Screen 06/05/18 06/05/18 06/05/18 12:35 13:40 15:00 WBC RBC Hgb Hct MCV MCH MCHC RDW Plt Count MPV Gran % Lymph % (Auto) [place] % (Auto) Eos % (Auto) Baso % (Auto) Gran # Lymph # (Auto) [place] # (Auto) Eos # (Auto) Baso # (Auto) pCO2 pO2 HCO3 ABG pH ABG Total CO2 ABG O2 Saturation ABG O2 Content ABG Base Excess ABG Hemoglobin ABG Carboxyhemoglobin POC ABG HHb (Measured) ABG Methemoglobin ABG O2 Capacity ABG Potassium VBG pH VBG pCO2 VBG HCO3 VBG Total CO2 VBG O2 Sat (Calc) VBG Base Excess VBG Potassium Hgb O2 Saturation Glucose Lactate Mechanical Rate FiO2 Tidal Volume PEEP Sodium Potassium Chloride Carbon Dioxide Anion Gap BUN Creatinine Est GFR ( Amer) Est GFR (Non-Af Amer) Random Glucose Calcium Phosphorus Magnesium Total Bilirubin AST ALT Alkaline Phosphatase Total Creatine Kinase 271 H CK-MB (CK-2) 1.6 CK-MB (CK-2) % Cancelled Total Protein Albumin Globulin Albumin/Globulin Ratio Free T4 0.58 L TSH 3rd Generation 32.70 H Arterial Blood Potassium Venous Blood Potassium Urine Color Urine Appearance Urine pH Ur Specific [place] Urine Protein Urine Glucose (UA) Urine Ketones Urine Blood Urine Nitrate Urine Bilirubin Urine Urobilinogen Ur Leukocyte Esterase Urine RBC Urine WBC Ur Epithelial Cells Urine Bacteria Urine Opiates Screen Urine Methadone Screen Ur Barbiturates Screen Valproic Acid Ur Phencyclidine Scrn Ur Amphetamines Screen U Benzodiazepines Scrn U Oth Cocaine Metabols U Cannabinoids Screen 06/05/18 06/06/18 18:02 06:15 WBC RBC Hgb Hct MCV MCH MCHC RDW Plt Count MPV Gran % Lymph % (Auto) [place] % (Auto) Eos % (Auto) Baso % (Auto) Gran # Lymph # (Auto) [place] # (Auto) Eos # (Auto) Baso # (Auto) pCO2 28 L 28 L pO2 137.0 H 178.0 H HCO3 20.9 L 22.3 ABG pH 7.48 H 7.51 H ABG Total CO2 21.8 L 23.2 ABG O2 Saturation 99.5 H 100.0 H ABG O2 Content 16.6 ABG Base Excess -1.4 0.2 ABG Hemoglobin 11.9 ABG Carboxyhemoglobin 1.7 H POC ABG HHb (Measured) 0 ABG Methemoglobin 1.4 ABG O2 Capacity 16.6 ABG Potassium 2.7 L VBG pH VBG pCO2 VBG HCO3 VBG Total CO2 VBG O2 Sat (Calc) VBG Base Excess VBG Potassium Hgb O2 Saturation 96.9 Glucose 92 Lactate 0.8 Mechanical Rate 20 FiO2 50.0 50.0 Tidal Volume 450 PEEP 5 Sodium 141.0 Potassium Chloride 112.0 H Carbon Dioxide Anion Gap BUN Creatinine Est GFR ( Amer) Est GFR (Non-Af Amer) Random Glucose Calcium Phosphorus Magnesium Total Bilirubin AST ALT Alkaline Phosphatase Total Creatine Kinase CK-MB (CK-2) CK-MB (CK-2) % Total Protein Albumin Globulin Albumin/Globulin Ratio Free T4 TSH 3rd Generation Arterial Blood Potassium 2.7 L Venous Blood Potassium Urine Color Urine Appearance Urine pH Ur Specific [place] Urine Protein Urine Glucose (UA) Urine Ketones Urine Blood Urine Nitrate Urine Bilirubin Urine Urobilinogen Ur Leukocyte Esterase Urine RBC Urine WBC Ur Epithelial Cells Urine Bacteria Urine Opiates Screen Urine Methadone Screen Ur Barbiturates Screen Valproic Acid Ur Phencyclidine Scrn Ur Amphetamines Screen U Benzodiazepines Scrn U Oth Cocaine Metabols U Cannabinoids Screen Radiology Impressions: Radiology Impressions Head CT 06/05/18 06:26 IMPRESSION: Normal CT of the Head. Chest X-Ray 06/05/18 06:27 IMPRESSION: No active disease. EKG/Cardiology Studies: Cardiology / EKG Studies 06/05/18 07:21 EKG [ELECTROCARDIOGRAM] Stat Comment: Reason For Exam: SEIZURE Fingerstick Blood Sugar Results: 213 Review of Systems - Review of Systems Review of Systems: 12 point ROS unable to be ascertained due to clinical condition. Critical Care Progress Note - Extremities/Vascular Does the Patient have a Dutta Catheter?: Yes Does the Patient need a Dutta Catheter?: Yes - Nutrition Nutrition: Nutrition Category Date Time Status NPO Diet [DIET] Diets 06/05/18 Lunch Ordered Assessment/Plan - Assessment and Plan (Free Text) Assessment: Mr. Gannon is a 37 year old male with past medical history of seizures who presents in a tonic-clonic seizure. Patient is currently sedated on Propofol and Versed, intubated and monitored in ICU. Currently on continuous video EEG. Neuro: - Neurology consult - Dr. Singh Caraballo -recs appreciated - 06/05/18 CT head negative - Continue Keppra 750 mg IV BID, 1 g received in ED this AM, Depakote on hold per Neuro recommendations - NS @ 150 cc/hr discontinued, begin D5 1/2NS@ 75cc/hr - Total CK 271 - Continuous EEG in progress, began 06/05/18 - UDS pos for barbs and cannabinoids, Valproate level <11 - AAOx3, no FND, moving extremities past midline. - Monitor neuro status. Neurochecks Q2H, seizure, aspiration precautions in place - Reorient patient as necessary. Cardio: - EKG on admission sinus tach @ 111, currently HR in the 70s - RRR, normotensive, no signs of HD compromise - Maintain MAP>65. - Monitor for S/S, HD compromise. Pulm: - Acute resp distress, intubated on mechanical ventilation, changed to 40/5/15/450 on propofol and versed drips - 06/06/18 ABG shows resp alkalosis - 06/06/18 CXR shows RLL consolidation. Begin Unasyn 3 g q6 for anaerobic coverage for likely aspiration - Maintain O2 saturation>92%. Vent: protective lung ventilation strategy, seizure and aspiration precautions - 06/05/18 ABG shows resp acidosis - 06/05/18 CXR: no acute process, no consolidation - Elevate bed to 30 degrees GI: - NPO, NS @ 150 cc/hr discontinued. D51/2NS @ 75 cc begun - Hold tube feeds at this time due to further aspiration risk - Protonix /Nephro: - BUN/Cr stable - UA - RBCs - Good urine output - Replete electrolytes as needed. - Maintain euvolemia. Endocrinology: - Hypothyroidism - continue Synthroid to 88 mcg - TSH 32, 38; free T4 0.58 - Random glucose: 221, 97, 105 - Maintain euglycemia. Heme/Onc: - H/H stable at 13.7 - No signs of HD compromise. - Continue monitoring H/H ID: - Afebrile, Leukocytosis 13.9 - f/u procal, urine cx, blood cx - Monitor for signs and symptoms of infection. DVT prophylaxis: Lovenox GI prophylaxis: Protonix IV Patient seen, case reviewed and plan approved by Dr. Andrew Romano. Bebeto Paulson, PGY-1 <Homero Romano - Last Filed: 06/06/18 14:41> CCU Objective - Vital Signs / Intake & Output Intake and Output (Last 8hrs): Intake & Output 06/05/18 06/06/18 06/06/18 22:59 06:59 14:59 Intake Total 1600 2190 Output Total 1100 600 Balance 500 1590 Weight 80.739 kg Intake: IV 1600 2190 Left Forearm 300 1900 Right Antecubital 1300 Right Forearm 290 Oral 0 Output: Urine 1100 600 Urethral (Dutta) 1100 600 Other: # Bowel Movements 0 - Medications Active Medications: Active Medications Generic Name Dose Route Start Last Admin Trade Name Freq PRN Reason Stop Dose Admin Enoxaparin Sodium 40 mg 06/05/18 10:00 06/06/18 10:02 Lovenox SC 40 mg DAILY JIGNESH Administration Protocol Midazolam 100 mg/100ml in NS 100 mg in 100 mls @ 1 mls/hr 06/05/18 07:30 0 06/06/18 04:15 Midazolam 100 Mg/100ml In Ns IV 5 mg/hr .Q24H PRN 5 mls/hr Agitation Administration Protocol 1 MG/HR Propofol 1,000 mg in 100 mls @ 2.368 mls/hr 06/05/18 07:45 06/05/18 18:51 Diprivan IV 40 mcg/kg/min .Q24H PRN 18.942 mls/hr TITRATE PER MD ORDER Administration Protocol 5 MCG/KG/MIN Levetiracetam 750 mg/ Sodium 107.5 mls @ 430 mls/hr 06/05/18 18:00 06/06/18 05:32 Chloride IV 430 mls/hr Q12H JIGNESH Administration Dextrose/Sodium Chloride 1,000 mls @ 75 mls/hr 06/06/18 12:15 06/06/18 12:09 Dextrose 5%/0.45% Ns 1000 Ml IV 75 mls/hr .[id number] JIGNESH Administration Ampicillin Sodium/Sulbactam 100 mls @ 200 mls/hr 06/06/18 18:00 Sodium 3 gm/ Sodium Chloride IVPB Q6 JIGNESH Protocol Levothyroxine Sodium 88 mcg 06/05/18 14:43 06/06/18 05:32 Synthroid PO 88 mcg 0600 JIGNESH Administration Pantoprazole Sodium 40 mg 06/05/18 10:00 06/06/18 10:02 Protonix Inj IVP 40 mg DAILY JIGNESH Administration - Patient Studies Lab Studies: Lab Studies 06/06/18 06/06/18 06/06/18 Range/Units 06:15 05:30 05:30 WBC (4.5-11.0) 10^3/uL RBC (3.5-6.1) 10^6/uL Hgb (14.0-18.0) g/dL Hct (42.0-52.0) % MCV (80.0-105.0) fl MCH (25.0-35.0) pg MCHC (31.0-37.0) g/dl RDW (11.5-14.5) % Plt Count (120.0-450.0) 10^3/uL MPV (7.0-11.0) fl Gran % (50.0-68.0) % Lymph % (Auto) (22.0-35.0) % [place] % (Auto) (1.0-6.0) % Eos % (Auto) (1.5-5.0) % Baso % (Auto) (0.0-3.0) % Gran # (1.4-6.5) Lymph # (Auto) (1.2-3.4) [place] # (Auto) (0.1-0.6) Eos # (Auto) (0.0-0.7) Baso # (Auto) (0.0-2.0) K/mm3 pCO2 28 L (35-45) mm/Hg pO2 178.0 H (80-100) mm/Hg HCO3 22.3 (21-28) mmol/L ABG pH 7.51 H (7.35-7.45) ABG Total CO2 23.2 (22-28) mmol.L ABG O2 Saturation 100.0 H (95-98) % ABG O2 Content 16.6 (15-23) ML/dl ABG Base Excess 0.2 (-2.0-3.0) mmol/L ABG Hemoglobin 11.9 (11.7-17.4) g/dL ABG Carboxyhemoglobin 1.7 H (0.5-1.5) % POC ABG HHb (Measured) 0 (0-5) % ABG Methemoglobin 1.4 (0.0-3.0) % ABG O2 Capacity 16.6 (16-24) mL/dl ABG Potassium (3.6-5.2) mmol/L Hgb O2 Saturation 96.9 (95.0-98.0) % Sodium 139 (132-148) mmol/L Chloride 107 (98-107) mmol/L Glucose (75-110) mg/dl Lactate (0.7-2.1) mmol/L Mechanical Rate FiO2 50.0 % Tidal Volume PEEP Potassium 3.6 (3.6-5.0) mmol/L Carbon Dioxide 24 (21-33) mmol/L Anion Gap 12 (10-20) BUN 10 (7-21) mg/dL Creatinine 0.8 (0.8-1.5) mg/dl Est GFR ( Amer) > 60 Est GFR (Non-Af Amer) > 60 Random Glucose 105 (70-110) mg/dL Calcium 9.0 (8.4-10.5) mg/dL Phosphorus 3.2 (2.5-4.5) mg/dL Magnesium 2.0 (1.7-2.2) mg/dL Total Bilirubin 0.9 (0.2-1.3) mg/dL AST 28 (17-59) U/L ALT 19 (7-56) U/L Alkaline Phosphatase 50 (38-126) U/L Total Protein 7.1 (5.8-8.3) g/dL Albumin 4.1 (3.0-4.8) g/dL Globulin 3.1 gm/dL Albumin/Globulin Ratio 1.3 (1.1-1.8) Procalcitonin (0.19-0.49) NG/ML Free T4 (0.78-2.19) ng/dL TSH 3rd Generation 38.00 H (0.46-4.68) mIU/mL Arterial Blood Potassium (3.6-5.2) mmol/L 06/06/18 06/05/18 06/05/18 Range/Units 05:30 20:00 18:02 WBC 13.9 H D (4.5-11.0) 10^3/uL RBC 4.22 (3.5-6.1) 10^6/uL Hgb 13.7 L (14.0-18.0) g/dL Hct 40.3 L (42.0-52.0) % MCV 95.5 (80.0-105.0) fl MCH 32.5 (25.0-35.0) pg MCHC 34.0 (31.0-37.0) g/dl RDW 14.0 (11.5-14.5) % Plt Count 138 (120.0-450.0) 10^3/uL MPV 11.6 H (7.0-11.0) fl Gran % 84.3 H (50.0-68.0) % Lymph % (Auto) 10.4 L (22.0-35.0) % [place] % (Auto) 5.2 (1.0-6.0) % Eos % (Auto) 0.0 L (1.5-5.0) % Baso % (Auto) 0.1 (0.0-3.0) % Gran # 11.72 H (1.4-6.5) Lymph # (Auto) 1.5 (1.2-3.4) [place] # (Auto) 0.7 H (0.1-0.6) Eos # (Auto) 0.0 (0.0-0.7) Baso # (Auto) 0.01 (0.0-2.0) K/mm3 pCO2 28 L (35-45) mm/Hg pO2 137.0 H (80-100) mm/Hg HCO3 20.9 L (21-28) mmol/L ABG pH 7.48 H (7.35-7.45) ABG Total CO2 21.8 L (22-28) mmol.L ABG O2 Saturation 99.5 H (95-98) % ABG O2 Content (15-23) ML/dl ABG Base Excess -1.4 (-2.0-3.0) mmol/L ABG Hemoglobin (11.7-17.4) g/dL ABG Carboxyhemoglobin (0.5-1.5) % POC ABG HHb (Measured) (0-5) % ABG Methemoglobin (0.0-3.0) % ABG O2 Capacity (16-24) mL/dl ABG Potassium 2.7 L (3.6-5.2) mmol/L Hgb O2 Saturation (95.0-98.0) % Sodium 141.0 (132-148) mmol/L Chloride 112.0 H (98-107) mmol/L Glucose 92 (75-110) mg/dl Lactate 0.8 (0.7-2.1) mmol/L Mechanical Rate 20 FiO2 50.0 % Tidal Volume 450 PEEP 5 Potassium (3.6-5.0) mmol/L Carbon Dioxide (21-33) mmol/L Anion Gap (10-20) BUN (7-21) mg/dL Creatinine (0.8-1.5) mg/dl Est GFR ( Amer) Est GFR (Non-Af Amer) Random Glucose (70-110) mg/dL Calcium (8.4-10.5) mg/dL Phosphorus (2.5-4.5) mg/dL Magnesium (1.7-2.2) mg/dL Total Bilirubin (0.2-1.3) mg/dL AST (17-59) U/L ALT (7-56) U/L Alkaline Phosphatase (38-126) U/L Total Protein (5.8-8.3) g/dL Albumin (3.0-4.8) g/dL Globulin gm/dL Albumin/Globulin Ratio (1.1-1.8) Procalcitonin < 0.05 L (0.19-0.49) NG/ML Free T4 (0.78-2.19) ng/dL TSH 3rd Generation (0.46-4.68) mIU/mL Arterial Blood Potassium 2.7 L (3.6-5.2) mmol/L 06/05/18 Range/Units 15:00 WBC (4.5-11.0) 10^3/uL RBC (3.5-6.1) 10^6/uL Hgb (14.0-18.0) g/dL Hct (42.0-52.0) % MCV (80.0-105.0) fl MCH (25.0-35.0) pg MCHC (31.0-37.0) g/dl RDW (11.5-14.5) % Plt Count (120.0-450.0) 10^3/uL MPV (7.0-11.0) fl Gran % (50.0-68.0) % Lymph % (Auto) (22.0-35.0) % [place] % (Auto) (1.0-6.0) % Eos % (Auto) (1.5-5.0) % Baso % (Auto) (0.0-3.0) % Gran # (1.4-6.5) Lymph # (Auto) (1.2-3.4) [place] # (Auto) (0.1-0.6) Eos # (Auto) (0.0-0.7) Baso # (Auto) (0.0-2.0) K/mm3 pCO2 (35-45) mm/Hg pO2 (80-100) mm/Hg HCO3 (21-28) mmol/L ABG pH (7.35-7.45) ABG Total CO2 (22-28) mmol.L ABG O2 Saturation (95-98) % ABG O2 Content (15-23) ML/dl ABG Base Excess (-2.0-3.0) mmol/L ABG Hemoglobin (11.7-17.4) g/dL ABG Carboxyhemoglobin (0.5-1.5) % POC ABG HHb (Measured) (0-5) % ABG Methemoglobin (0.0-3.0) % ABG O2 Capacity (16-24) mL/dl ABG Potassium (3.6-5.2) mmol/L Hgb O2 Saturation (95.0-98.0) % Sodium (132-148) mmol/L Chloride (98-107) mmol/L Glucose (75-110) mg/dl Lactate (0.7-2.1) mmol/L Mechanical Rate FiO2 % Tidal Volume PEEP Potassium (3.6-5.0) mmol/L Carbon Dioxide (21-33) mmol/L Anion Gap (10-20) BUN (7-21) mg/dL Creatinine (0.8-1.5) mg/dl Est GFR ( Amer) Est GFR (Non-Af Amer) Random Glucose (70-110) mg/dL Calcium (8.4-10.5) mg/dL Phosphorus (2.5-4.5) mg/dL Magnesium (1.7-2.2) mg/dL Total Bilirubin (0.2-1.3) mg/dL AST (17-59) U/L ALT (7-56) U/L Alkaline Phosphatase (38-126) U/L Total Protein (5.8-8.3) g/dL Albumin (3.0-4.8) g/dL Globulin gm/dL Albumin/Globulin Ratio (1.1-1.8) Procalcitonin (0.19-0.49) NG/ML Free T4 0.58 L (0.78-2.19) ng/dL TSH 3rd Generation (0.46-4.68) mIU/mL Arterial Blood Potassium (3.6-5.2) mmol/L Laboratory Results - last 24 hr 06/05/18 06/05/18 06/05/18 15:00 18:02 20:00 WBC RBC Hgb Hct MCV MCH MCHC RDW Plt Count MPV Gran % Lymph % (Auto) [place] % (Auto) Eos % (Auto) Baso % (Auto) Gran # Lymph # (Auto) [place] # (Auto) Eos # (Auto) Baso # (Auto) pCO2 28 L pO2 137.0 H HCO3 20.9 L ABG pH 7.48 H ABG Total CO2 21.8 L ABG O2 Saturation 99.5 H ABG O2 Content ABG Base Excess -1.4 ABG Hemoglobin ABG Carboxyhemoglobin POC ABG HHb (Measured) ABG Methemoglobin ABG O2 Capacity ABG Potassium 2.7 L Hgb O2 Saturation Sodium 141.0 Chloride 112.0 H Glucose 92 Lactate 0.8 Mechanical Rate 20 FiO2 50.0 Tidal Volume 450 PEEP 5 Potassium Carbon Dioxide Anion Gap BUN Creatinine Est GFR ( Amer) Est GFR (Non-Af Amer) Random Glucose Calcium Phosphorus Magnesium Total Bilirubin AST ALT Alkaline Phosphatase Total Protein Albumin Globulin Albumin/Globulin Ratio Procalcitonin < 0.05 L Free T4 0.58 L TSH 3rd Generation Arterial Blood Potassium 2.7 L 06/06/18 06/06/18 06/06/18 05:30 05:30 05:30 WBC 13.9 H D RBC 4.22 Hgb 13.7 L Hct 40.3 L MCV 95.5 MCH 32.5 MCHC 34.0 RDW 14.0 Plt Count 138 MPV 11.6 H Gran % 84.3 H Lymph % (Auto) 10.4 L [place] % (Auto) 5.2 Eos % (Auto) 0.0 L Baso % (Auto) 0.1 Gran # 11.72 H Lymph # (Auto) 1.5 [place] # (Auto) 0.7 H Eos # (Auto) 0.0 Baso # (Auto) 0.01 pCO2 pO2 HCO3 ABG pH ABG Total CO2 ABG O2 Saturation ABG O2 Content ABG Base Excess ABG Hemoglobin ABG Carboxyhemoglobin POC ABG HHb (Measured) ABG Methemoglobin ABG O2 Capacity ABG Potassium Hgb O2 Saturation Sodium 139 Chloride 107 Glucose Lactate Mechanical Rate FiO2 Tidal Volume PEEP Potassium 3.6 Carbon Dioxide 24 Anion Gap 12 BUN 10 Creatinine 0.8 Est GFR ( Amer) > 60 Est GFR (Non-Af Amer) > 60 Random Glucose 105 Calcium 9.0 Phosphorus 3.2 Magnesium 2.0 Total Bilirubin 0.9 AST 28 ALT 19 Alkaline Phosphatase 50 Total Protein 7.1 Albumin 4.1 Globulin 3.1 Albumin/Globulin Ratio 1.3 Procalcitonin Free T4 TSH 3rd Generation 38.00 H Arterial Blood Potassium 06/06/18 06:15 WBC RBC Hgb Hct MCV MCH MCHC RDW Plt Count MPV Gran % Lymph % (Auto) [place] % (Auto) Eos % (Auto) Baso % (Auto) Gran # Lymph # (Auto) [place] # (Auto) Eos # (Auto) Baso # (Auto) pCO2 28 L pO2 178.0 H HCO3 22.3 ABG pH 7.51 H ABG Total CO2 23.2 ABG O2 Saturation 100.0 H ABG O2 Content 16.6 ABG Base Excess 0.2 ABG Hemoglobin 11.9 ABG Carboxyhemoglobin 1.7 H POC ABG HHb (Measured) 0 ABG Methemoglobin 1.4 ABG O2 Capacity 16.6 ABG Potassium Hgb O2 Saturation 96.9 Sodium Chloride Glucose Lactate Mechanical Rate FiO2 50.0 Tidal Volume PEEP Potassium Carbon Dioxide Anion Gap BUN Creatinine Est GFR ( Amer) Est GFR (Non-Af Amer) Random Glucose Calcium Phosphorus Magnesium Total Bilirubin AST ALT Alkaline Phosphatase Total Protein Albumin Globulin Albumin/Globulin Ratio Procalcitonin Free T4 TSH 3rd Generation Arterial Blood Potassium Radiology Impressions: Radiology Impressions Chest X-Ray 06/06/18 06:00 IMPRESSION: Interval development of right lower lobe pneumonia and small right pleural effusion. Stable position of endotracheal and nasogastric tubes. Critical Care Progress Note - Nutrition Nutrition: Nutrition Category Date Time Status NPO Diet [DIET] Diets 06/05/18 Lunch Ordered Addendum Addendum: 06/06/18 14:41 ICU Attending Addendum Patient seen and examined. Case reviewed on round with housestaff. Agree with resident note above with the following additions/exceptions: 37 year old male with past medical history of seizures who presents in a tonic- clonic seizures requiring intubation currently undergoing video EEG neuro on board has pt on keppra and holding depakote for now f/u neurop recs cont seziures precautions remains on vent will cont vent support until he is more awake still not very arousable and not following commands will plan to wean off sedation new RLL infiltrate, unclear etio possibel aspiration will start unasyn check sputum cultures cant stop NS, does not have rhabdo switch to maint fluids D5 @ 75 Rest of care as above Homero Romano MD Pulmonary Critical Care and Sleep Medicine CC Time: 31 mins
[2018-06-06 07:12] LABS: ALB/GLOB RATIO 1.3 (1.1-1.8); ALBUMIN 4.1 g/dL (3.0-4.8); ALT/SGPT 19 U/L (7-56); AST/SGOT 28 U/L (17-59); BLOOD UREA NITROGEN 10 mg/dL (7-21); GFR NON-AFRICAN AMERICAN > 60
--- NOTE | 2018-06-06 08:39 | RAD ---
Date of service: 06/06/2018 HISTORY: intubated, COMPARISON: 06/05/2018 FINDINGS: Endotracheal tube terminates in the mid trachea. The nasogastric tube terminates in the stomach. LUNGS: Lungs are well inflated. There is interval development of airspace disease in the right lower lobe. The left lung is clear. PLEURA: Interval development of small right pleural effusion. No left pleural effusion. No pneumothorax. CARDIOVASCULAR: The heart is normal in size. No aortic atherosclerotic calcification present. OSSEOUS STRUCTURES: Within normal limits for the patient's age. VISUALIZED UPPER ABDOMEN: Normal. OTHER FINDINGS: None. IMPRESSION: Interval development of right lower lobe pneumonia and small right pleural effusion. Stable position of endotracheal and nasogastric tubes.
[2018-06-06] MEDS ORDERED: levETIRAcetam 1000mg/100ml NS 100 ML IV SCH (10:00)
[2018-06-06] MEDS: Enoxaparin 40 mg Syringe SC SCH (10:02)
[2018-06-06] MEDS ORDERED: Dextrose 5%/0.45% NS 1,000 ML IV SCH (12:15)
--- NOTE | 2018-06-06 13:01 | PCM.VEEG ---
Video EEG - Procedure Start Date: 06/05/18 Start Time: 16:45 End Date: 06/06/18 End Time: 09:20 Technical Summary: DATA ACQUISITION: This was a multichannel inpatient video-EEG, a minimum of 22 channels were uti lized, performed in accordance with recommendations specified by the [place] [employer] Neurophys[employer] Society (Dereck Paniagua et al. ACNS Guideline 1: Minimum Technical Requirements for Performing Clinical Electroencephalography. Journal of Clinical Neurophysiology 2016;33:303-7). The 10-20 electrode placement system was utilized in accordance with guidelines detailed by the International Federation of Clinical Neurophysiology (Shanell Neumann et al. The Ten-Twenty Electrode System of the International Federation. Recommendations for the Practice of Clinical Neurophysiology: Guidelines of the International Federation of Clinical Physiology 1999; EEG Suppl. 52.). DATA REVIEW / SPIKE DETECTION / DIGITAL ANALYSIS: The entire EEG was scanned and reviewed. Synchronized audio and video recording were reviewed at the time of each alarm and whenever an abnormality or suspicious activity was noted. The entire recording was analyzed utilizing an automated digital spike and seizure analysis program and all automatic spike and seizure detections were manually reviewed. A compressed spectral array was displayed and reviewed alongside the raw EEG tracings. In addition, further analysis of the EEG was performed when abnormalities were identified, including montage changes, dipole source localization, and frequency band identification. Video portion of the study is necessary to correlate abnormal EEG activity with clinical behavior. This study was attended 24 hours per day. - Interpretation Description of the study: Indication; Status epilepticus EEG Finding during wakefulness: There was not discernible awake EEG background, during this time the EEG showed diffuse bilateral attenuation with frequencies in the 6 to 7 Hz range that were not preperly orgnaized With stimulation there was minimal reactivity EEG Finding during sleep: Normal sleep architecture was not seen, when the patient was clinically asleep the EEG showed diffuse bilateral slowing at 4 to 5 Hz. Interictal non-epileptiform abnormalities: None Interictal epileptiform abnormalities: None Ictal epileptiform abnormalities: None - Impression Impression: IMPRESSION: This is an abnormal video EEG, monitoring study, due to the presence of: 1- Moderate to severe background slowing, No seizures not in status epilepticus INTERPRETATION: The above findings are in keeping with a moderate to severe non specific diffuse disturbance of cortical activity. This is in keeping with a diffuse mcdonald matter dysfunction. The findings do not suggest a specific etiology.
--- NOTE | 2018-06-06 20:22 | CP.PCM.PN ---
Subjective - Date & Time of Evaluation Date of Evaluation: 06/06/18 Time of Evaluation: 07:00 - Subjective Subjective: Pt examined this morning in the ICU, pt intubated and sedated. Objective - Vital Signs/Intake and Output Vital Signs (last 24 hours): Temp Pulse Resp BP Pulse Ox 99.7 F H 90 18 112/65 100 06/06/18 17:40 06/06/18 17:50 06/06/18 16:57 06/06/18 17:00 06/06/18 17:40 Intake and Output: 06/06/18 06/07/18 18:59 06:59 Intake Total 1765 Output Total 850 Balance 915 - Medications Medications: Current Medications Enoxaparin Sodium (Lovenox) 40 mg SC DAILY [facility]; Protocol Last Admin: 06/06/18 10:02 Dose: 40 mg Midazolam 100 mg/100ml in NS (Midazolam 100 Mg/100ml In Ns) 100 mg in 100 mls @ 1 mls/hr IV .Q24H PRN; Protocol PRN Reason: Agitation Last Admin: 06/06/18 04:15 Dose: 5 mg/hr, 5 mls/hr Propofol (Diprivan) 1,000 mg in 100 mls @ 2.368 mls/hr IV .Q24H PRN; Protocol PRN Reason: TITRATE PER MD ORDER Last Admin: 06/05/18 18:51 Dose: 40 mcg/kg/min, 18.942 mls/hr Levetiracetam 750 mg/ Sodium (Chloride) 107.5 mls @ 430 mls/hr IV Q12H [facility] Last Admin: 06/06/18 17:43 Dose: 430 mls/hr Dextrose/Sodium Chloride (Dextrose 5%/0.45% Ns 1000 Ml) 1,000 mls @ 75 mls/hr IV .[id number] [facility] Last Admin: 06/06/18 12:09 Dose: 75 mls/hr Ampicillin Sodium/Sulbactam (Sodium 3 gm/ Sodium Chloride) 100 mls @ 200 mls/hr IVPB Q6 [facility]; Protocol Last Admin: 06/06/18 17:14 Dose: 200 mls/hr Levothyroxine Sodium (Synthroid) 88 mcg PO 0600 [facility] Last Admin: 06/06/18 05:32 Dose: 88 mcg Pantoprazole Sodium (Protonix Inj) 40 mg IVP DAILY JIGNESH Last Admin: 06/06/18 10:02 Dose: 40 mg - Labs Labs: 06/06/18 05:30 06/06/18 05:30 - Head Exam Head Exam: ATRAUMATIC, NORMOCEPHALIC - Eye Exam Eye Exam: PERRL - ENT Exam ENT Exam: Mucous Membranes Moist - Respiratory Exam Respiratory Exam: Clear to Ausculation Bilateral, Respiratory Distress, NORMAL BREATHING PATTERN. absent: Accessory Muscle Use Additional comments: intubated - Cardiovascular Exam Cardiovascular Exam: RRR, +S1, +S2. absent: Diastolic murmur, Murmur - GI/Abdominal Exam GI & Abdominal Exam: Soft, Normal Bowel Sounds - Skin Skin Exam: Dry, Intact, Warm Assessment and Plan - Assessment and Plan (Free Text) Assessment: Pt is a 37yo male with a PMH of seizures, hyperthyroid s/p thyroidectomy, bipolar, IED who presents via EMS after his girlfriend witnessed him having a seizure. Plan: Neuro - pt admitted and intubated in the ICU - GCS 4T - CT head negative - keppra - continuous video EEG: abnormal EEG, moderate to severe background slowing. - valproate level <11 - seizure precautions - aspiration precautions - Neurology consult, Dr Caraballo Cardio - maintain MAP>65 Pulm - pt intubated - maintain O2 sats above 92% - elevate head of bed to 30 degrees - Chest CT- interval development of RLL PNA and small right pleural effusion. stable position of ET and NG tubes GI - NPO - protonix /Nephro - continue to monitor BUN/ Cr - maintain euvolemia Endocrine - hypothyroid - synthroid 88 - TSH 38 ID - fever 101.6F - CXR RLL PNA - blood cultures - lactate 0.8 Heme Onc - monitor for signs of hemodynamic instability - HGB 13.9 Ppx - lovenox - protonix Pt seen, examined, assessment and plan discussed with Dr Nilda Gongora PGY1, Internal Medicine Resident
[2018-06-07 05:25] LABS: ARTERIAL BLOOD GAS HCO3 25.3 mmol/L (21-28); ARTERIAL BLOOD GAS O2 CAPACITY 20.8 mL/dl (16-24); ARTERIAL BLOOD GAS O2 CONTENT 20.8 ML/dl (15-23); ARTERIAL BLOOD GAS O2 SAT 100.2 % (95-98); ARTERIAL BLOOD GAS PCO2 39 mm/Hg (35-45); ARTERIAL BLOOD GAS PH 7.42 (7.35-7.45); ARTERIAL BLOOD GAS TCO2 26.5 mmol.L (22-28)
[2018-06-07] MEDS: Levothyroxine 88 MCG TAB PO SCH (05:42)
[2018-06-07 06:44] LABS: EOS # 0.1 (0.0-0.7); EOS % 1.1 % (1.5-5.0); GRAN # 6.79 (1.4-6.5); GRAN % 76.9 % (50.0-68.0); LYMPH # 1.4 (1.2-3.4); MEAN CELL VOLUME 95.7 fl (80.0-105.0); MEAN CORPUSCULAR HEMOGLOBIN 31.9 pg (25.0-35.0); MEAN CORPUSCULAR HGB CONC 33.3 g/dl (31.0-37.0); MEAN PLATELET VOLUME 11.5 fl (7.0-11.0); MONO # 0.5 (0.1-0.6); RBC 3.76 10^6/uL (3.5-6.1); RED CELL DISTRIBUTION WIDTH 14.2 % (11.5-14.5); WHITE BLOOD COUNT 8.8 10^3/uL (4.5-11.0)
[2018-06-07 06:51] LABS: ALB/GLOB RATIO 1.1 (1.1-1.8); ALBUMIN 3.3 g/dL (3.0-4.8); ALT/SGPT 20 U/L (7-56); AST/SGOT 24 U/L (17-59); BLOOD UREA NITROGEN 7 mg/dL (7-21); CALCIUM 8.5 mg/dL (8.4-10.5); GFR NON-AFRICAN AMERICAN > 60
--- NOTE | 2018-06-07 07:58 | CP.CCUPN ---
<Bebeto Paulson - Last Filed: 06/07/18 14:26> CCU Subjective - Physician Review Subjective (Free Text): Bebeto Paulson PGY-1 Progress Note for ICU Patient seen and evaluated at bedside. No acute events reported overnight. Patient is intubated on ventilation support, on Propofol and Midazolam drips. Completed video EEG. No further ROS able to be obtained. CCU Objective - Vital Signs / Intake & Output Intake and Output (Last 8hrs): Intake & Output 06/06/18 06/07/18 06/07/18 22:59 06:59 14:59 Intake Total 1765 1688 Output Total 850 1000 Balance 915 688 Intake: IV 1765 1688 Left Forearm 1765 1200 Right Forearm 488 Output: Urine 850 1000 Urethral (Dutta) 850 1000 Other: # Bowel Movements 0 - Physical Exam Head: Positive for: Atraumatic Extroacular Muscles: Negative for: EOMI (unable to be ascertained) Mouth: Positive for: Moist Mucous Membranes, Drooling Pharnyx: Positive for: Other (NGT in place, draining. Intubated at 40/5/15/450) Respiratory/Chest: Positive for: Clear to Auscultation, Good Air Exchange, Respiratory Distress (Intubated). Negative for: Wheezes, Decreased Breath Sounds, Rales, Rhonchi Cardiovascular: Positive for: Regular Rate and Rhythm, Normal S1, S2 Abdomen: Negative for: Distention, Guarding Upper Extremity: Positive for: Other (pt sedated and unable to be ascertained) Lower Extremity: Positive for: Other (pt sedated and unable to be ascertained) Neurological: Positive for: Other (responsive to verbal and painful stimuli) Skin: Positive for: Warm, Dry Psychiatric: Negative for: Alert, Oriented x 3 - Medications Active Medications: Active Medications Generic Name Dose Route Start Last Admin Trade Name Freq PRN Reason Stop Dose Admin Enoxaparin Sodium 40 mg 06/05/18 10:00 06/06/18 10:02 Lovenox SC 40 mg DAILY JIGNESH Administration Protocol Midazolam 100 mg/100ml in NS 100 mg in 100 mls @ 1 mls/hr 06/05/18 07:30 06/06/18 04:15 Midazolam 100 Mg/100ml In Ns IV 5 mg/hr .Q24H PRN 5 mls/hr Agitation Administration Protocol 1 MG/HR Propofol 1,000 mg in 100 mls @ 2.368 mls/hr 06/05/18 07:45 06/05/18 18:51 Diprivan IV 40 mcg/kg/min .Q24H PRN 18.942 mls/hr TITRATE PER MD ORDER Administration Protocol 5 MCG/KG/MIN Levetiracetam 750 mg/ Sodium 107.5 mls @ 430 mls/hr 06/05/18 18:00 06/07/18 05:41 Chloride IV 430 mls/hr Q12H JIGNESH Administration Dextrose/Sodium Chloride 1,000 mls @ 75 mls/hr 06/06/18 12:15 06/06/18 12:09 Dextrose 5%/0.45% Ns 1000 Ml IV 75 mls/hr .[id number] JIGNESH Administration Ampicillin Sodium/Sulbactam 100 mls @ 200 mls/hr 06/06/18 18:00 06/07/18 05:42 Sodium 3 gm/ Sodium Chloride IVPB 200 mls/hr Q6 JIGNESH Administration Protocol Levothyroxine Sodium 88 mcg 06/05/18 14:43 06/07/18 05:42 Synthroid PO 88 mcg 0600 JIGNESH Administration Pantoprazole Sodium 40 mg 06/05/18 10:00 06/06/18 10:02 Protonix Inj IVP 40 mg DAILY JIGNESH Administration - Patient Studies Lab Studies: Microbiology Studies 06/05/18 20:30 Blood Culture - Preliminary Blood NO GROWTH AFTER 24 HOURS 06/05/18 20:00 Blood Culture - Preliminary Blood NO GROWTH AFTER 24 HOURS 06/05/18 10:00 MRSA Culture (Admit) - Final Nose MRSA NOT DETECTED Lab Studies 06/07/18 06/07/18 06/07/18 Range/Units 05:25 05:25 05:15 WBC 8.8 D (4.5-11.0) 10^3/uL RBC 3.76 (3.5-6.1) 10^6/uL Hgb 12.0 L (14.0-18.0) g/dL Hct 36.0 L (42.0-52.0) % MCV 95.7 (80.0-105.0) fl MCH 31.9 (25.0-35.0) pg MCHC 33.3 (31.0-37.0) g/dl RDW 14.2 (11.5-14.5) % Plt Count 132 (120.0-450.0) 10^3/uL MPV 11.5 H (7.0-11.0) fl Gran % 76.9 H (50.0-68.0) % Lymph % (Auto) 16.0 L (22.0-35.0) % Morgan % (Auto) 6.0 (1.0-6.0) % Eos % (Auto) 1.1 L (1.5-5.0) % Baso % (Auto) 0.0 (0.0-3.0) % Gran # 6.79 H (1.4-6.5) Lymph # (Auto) 1.4 (1.2-3.4) Morgan # (Auto) 0.5 (0.1-0.6) Eos # (Auto) 0.1 (0.0-0.7) Baso # (Auto) 0.00 (0.0-2.0) K/mm3 pCO2 39 (35-45) mm/Hg pO2 155.0 H (80-100) mm/Hg HCO3 25.3 (21-28) mmol/L ABG pH 7.42 (7.35-7.45) ABG Total CO2 26.5 (22-28) mmol.L ABG O2 Saturation 100.2 H (95-98) % ABG O2 Content 20.8 (15-23) ML/dl ABG Base Excess 0.9 (-2.0-3.0) mmol/L ABG Hemoglobin 15.0 (11.7-17.4) g/dL ABG Carboxyhemoglobin 1.8 H (0.5-1.5) % POC ABG HHb (Measured) -0.2 L (0-5) % ABG Methemoglobin 1.0 (0.0-3.0) % ABG O2 Capacity 20.8 (16-24) mL/dl Hgb O2 Saturation 97.4 (95.0-98.0) % FiO2 40.0 % Sodium 138 (132-148) mmol/L Potassium 3.6 (3.6-5.0) mmol/L Chloride 108 H (98-107) mmol/L Carbon Dioxide 25 (21-33) mmol/L Anion Gap 9 L (10-20) BUN 7 (7-21) mg/dL Creatinine 0.7 L (0.8-1.5) mg/dl Est GFR ( Amer) > 60 Est GFR (Non-Af Amer) > 60 Random Glucose 95 (70-110) mg/dL Calcium 8.5 (8.4-10.5) mg/dL Phosphorus 2.7 (2.5-4.5) mg/dL Magnesium 2.1 (1.7-2.2) mg/dL Total Bilirubin 0.6 (0.2-1.3) mg/dL AST 24 (17-59) U/L ALT 20 (7-56) U/L Alkaline Phosphatase 49 (38-126) U/L Total Protein 6.3 (5.8-8.3) g/dL Albumin 3.3 (3.0-4.8) g/dL Globulin 2.9 gm/dL Albumin/Globulin Ratio 1.1 (1.1-1.8) Procalcitonin (0.19-0.49) NG/ML 06/05/18 Range/Units 20:00 WBC (4.5-11.0) 10^3/uL RBC (3.5-6.1) 10^6/uL Hgb (14.0-18.0) g/dL Hct (42.0-52.0) % MCV (80.0-105.0) fl MCH (25.0-35.0) pg MCHC (31.0-37.0) g/dl RDW (11.5-14.5) % Plt Count (120.0-450.0) 10^3/uL MPV (7.0-11.0) fl Gran % (50.0-68.0) % Lymph % (Auto) (22.0-35.0) % Morgan % (Auto) (1.0-6.0) % Eos % (Auto) (1.5-5.0) % Baso % (Auto) (0.0-3.0) % Gran # (1.4-6.5) Lymph # (Auto) (1.2-3.4) Morgan # (Auto) (0.1-0.6) Eos # (Auto) (0.0-0.7) Baso # (Auto) (0.0-2.0) K/mm3 pCO2 (35-45) mm/Hg pO2 (80-100) mm/Hg HCO3 (21-28) mmol/L ABG pH (7.35-7.45) ABG Total CO2 (22-28) mmol.L ABG O2 Saturation (95-98) % ABG O2 Content (15-23) ML/dl ABG Base Excess (-2.0-3.0) mmol/L ABG Hemoglobin (11.7-17.4) g/dL ABG Carboxyhemoglobin (0.5-1.5) % POC ABG HHb (Measured) (0-5) % ABG Methemoglobin (0.0-3.0) % ABG O2 Capacity (16-24) mL/dl Hgb O2 Saturation (95.0-98.0) % FiO2 % Sodium (132-148) mmol/L Potassium (3.6-5.0) mmol/L Chloride (98-107) mmol/L Carbon Dioxide (21-33) mmol/L Anion Gap (10-20) BUN (7-21) mg/dL Creatinine (0.8-1.5) mg/dl Est GFR ( Amer) Est GFR (Non-Af Amer) Random Glucose (70-110) mg/dL Calcium (8.4-10.5) mg/dL Phosphorus (2.5-4.5) mg/dL Magnesium (1.7-2.2) mg/dL Total Bilirubin (0.2-1.3) mg/dL AST (17-59) U/L ALT (7-56) U/L Alkaline Phosphatase (38-126) U/L Total Protein (5.8-8.3) g/dL Albumin (3.0-4.8) g/dL Globulin gm/dL Albumin/Globulin Ratio (1.1-1.8) Procalcitonin < 0.05 L (0.19-0.49) NG/ML Laboratory Results - last 24 hr 06/05/18 06/07/18 06/07/18 20:00 05:15 05:25 WBC 8.8 D RBC 3.76 Hgb 12.0 L Hct 36.0 L MCV 95.7 MCH 31.9 MCHC 33.3 RDW 14.2 Plt Count 132 MPV 11.5 H Gran % 76.9 H Lymph % (Auto) 16.0 L Morgan % (Auto) 6.0 Eos % (Auto) 1.1 L Baso % (Auto) 0.0 Gran # 6.79 H Lymph # (Auto) 1.4 Morgan # (Auto) 0.5 Eos # (Auto) 0.1 Baso # (Auto) 0.00 pCO2 39 pO2 155.0 H HCO3 25.3 ABG pH 7.42 ABG Total CO2 26.5 ABG O2 Saturation 100.2 H ABG O2 Content 20.8 ABG Base Excess 0.9 ABG Hemoglobin 15.0 ABG Carboxyhemoglobin 1.8 H POC ABG HHb (Measured) -0.2 L ABG Methemoglobin 1.0 ABG O2 Capacity 20.8 Hgb O2 Saturation 97.4 FiO2 40.0 Sodium Potassium Chloride Carbon Dioxide Anion Gap BUN Creatinine Est GFR ( Amer) Est GFR (Non-Af Amer) Random Glucose Calcium Phosphorus Magnesium Total Bilirubin AST ALT Alkaline Phosphatase Total Protein Albumin Globulin Albumin/Globulin Ratio Procalcitonin < 0.05 L 06/07/18 05:25 WBC RBC Hgb Hct MCV MCH MCHC RDW Plt Count MPV Gran % Lymph % (Auto) Morgan % (Auto) Eos % (Auto) Baso % (Auto) Gran # Lymph # (Auto) Morgan # (Auto) Eos # (Auto) Baso # (Auto) pCO2 pO2 HCO3 ABG pH ABG Total CO2 ABG O2 Saturation ABG O2 Content ABG Base Excess ABG Hemoglobin ABG Carboxyhemoglobin POC ABG HHb (Measured) ABG Methemoglobin ABG O2 Capacity Hgb O2 Saturation FiO2 Sodium 138 Potassium 3.6 Chloride 108 H Carbon Dioxide 25 Anion Gap 9 L BUN 7 Creatinine 0.7 L Est GFR ( Amer) > 60 Est GFR (Non-Af Amer) > 60 Random Glucose 95 Calcium 8.5 Phosphorus 2.7 Magnesium 2.1 Total Bilirubin 0.6 AST 24 ALT 20 Alkaline Phosphatase 49 Total Protein 6.3 Albumin 3.3 Globulin 2.9 Albumin/Globulin Ratio 1.1 Procalcitonin Radiology Impressions: Radiology Impressions Chest X-Ray 06/06/18 06:00 IMPRESSION: Interval development of right lower lobe pneumonia and small right pleural effusion. Stable position of endotracheal and nasogastric tubes. Fingerstick Blood Sugar Results: 213 Review of Systems - Review of Systems Review of Systems: 12 point ROS unable to be ascertained due to clinical condition Critical Care Progress Note - Nutrition Nutrition: Nutrition Category Date Time Status NPO Diet [DIET] Diets 06/05/18 Lunch Ordered Assessment/Plan - Assessment and Plan (Free Text) Assessment: Mr. Gannon is a 37 year old male with past medical history of seizures who presents in a tonic-clonic seizure. Patient is currently sedated on Propofol and Versed, intubated and monitored in ICU. Completed continuous video EEG. Plan for weaning trial and possible extubation. Neuro: - Responds to verbal and painful stimuli at this time - Neurology consult - Dr. Singh Caraballo - further recs appreciated - 06/05/18 CT head negative - Continue Keppra 750 mg IV BID, Depakote on hold per Neuro recommendations - Continue D5 1/2NS @ 75cc/hr - Total CK 271 - Continuous EEG 06/06/18 - moderate to severe background slowing, no seizures and not in status epilepticus - UDS pos for barbs and cannabinoids, Valproate level <11 - Monitor neuro status. Neurochecks Q2H, seizure, aspiration precautions in place - Reorient patient as necessary. Cardio: - EKG on admission sinus tach @ 111, currently HR in the 70s - RRR, normotensive, no signs of HD compromise - Maintain MAP>65. - Monitor for S/S, HD compromise. Pulm: - Acute resp distress, intubated on mechanical ventilation, changed to 40 /5/15/450 on propofol and versed drips - 06/07/18 CXR shows worsening haziness R> L, RLL infiltrate worsened - 06/06/18 ABG shows resp alkalosis - 06/06/18 CXR shows RLL consolidation. Interval development of right lower lobe pneumonia and small right pleural effusion. Stable position of endotracheal and nasogastric tubes. - Continue Unasyn 3 g q6 for anaerobic coverage for likely aspiration - Maintain O2 saturation>92%. Vent: protective lung ventilation strategy, seizure and aspiration precautions - 06/05/18 ABG shows resp acidosis - 06/05/18 CXR: no acute process, no consolidation - Elevate bed to 30 degrees GI: - NPO, Continue D51/2NS @ 75 cc begun - Hold tube feeds at this time due to further aspiration risk - Protonix /Nephro: - BUN/Cr stable - UA - RBCs - Good urine output - Replete electrolytes as needed. - Maintain euvolemia. Endocrinology: - Hypothyroidism - continue Synthroid 88 mcg - TSH 32, 38; free T4 0.58 - Random glucose: 221, 97, 105 - Maintain euglycemia. Heme/Onc: - H/H stable at 12 - No signs of HD compromise. - Continue monitoring H/H ID: - Afebrile, resolvedl eukocytosis 8.8 - Procal 0.05 - f/u urine cx, spuum cx, - blood cx neg x2 after 24 hours - Monitor for signs and symptoms of infection. DVT prophylaxis: Lovenox GI prophylaxis: Protonix IV Patient seen, case reviewed and plan approved by Dr. Adnrew Romano. Bebeto Paulson, PGY-1 <Homero Romano - Last Filed: 06/07/18 17:45> CCU Objective - Vital Signs / Intake & Output Intake and Output (Last 8hrs): Intake & Output 06/07/18 06/07/18 06/07/18 06:59 14:59 22:59 Intake Total 1688 120 Output Total 1000 Balance 688 120 Intake: IV 1688 120 Left Forearm 1200 Right Forearm 488 Output: Urine 1000 Urethral (Dutta) 1000 - Medications Active Medications: Active Medications Generic Name Dose Route Start Last Admin Trade Name Freq PRN Reason Stop Dose Admin Enoxaparin Sodium 40 mg 06/05/18 10:00 06/07/18 09:27 Lovenox SC 40 mg DAILY JIGNESH Administration Protocol Midazolam 100 mg/100ml in NS 100 mg in 100 mls @ 1 mls/hr 06/05/18 07:30 06/06/18 04:15 Midazolam 100 Mg/100ml In Ns IV 5 mg/hr .Q24H PRN 5 mls/hr Agitation Administration Protocol 1 MG/HR Propofol 1,000 mg in 100 mls @ 2.368 mls/hr 06/05/18 07:45 06/07/18 12:58 Diprivan IV 10 mcg/kg/min .Q24H PRN 4.736 mls/hr TITRATE PER MD ORDER Titration Protocol 5 MCG/KG/MIN Levetiracetam 750 mg/ Sodium 107.5 mls @ 430 mls/hr 06/05/18 18:00 06/07/18 05:41 Chloride IV 430 mls/hr Q12H JIGNESH Administration Dextrose/Sodium Chloride 1,000 mls @ 75 mls/hr 06/06/18 12:15 06/06/18 12:09 Dextrose 5%/0.45% Ns 1000 Ml IV 75 mls/hr .[id number] JINGESH Administration Ampicillin Sodium/Sulbactam 100 mls @ 200 mls/hr 06/06/18 18:00 06/07/18 11:52 Sodium 3 gm/ Sodium Chloride IVPB 200 mls/hr Q6 JIGNESH Administration Protocol Levothyroxine Sodium 88 mcg 06/05/18 14:43 06/07/18 05:42 Synthroid PO 88 mcg 0600 JIGNESH Administration Pantoprazole Sodium 40 mg 06/05/18 10:00 06/07/18 09:27 Protonix Inj IVP 40 mg DAILY JIGNESH Administration - Patient Studies Lab Studies: Microbiology Studies 06/05/18 22:00 Urine Culture - Final Urine,Dutta No Growth (<1,000 CFU/ML) 06/05/18 20:30 Blood Culture - Preliminary Blood NO GROWTH AFTER 24 HOURS 06/05/18 20:00 Blood Culture - Preliminary Blood NO GROWTH AFTER 24 HOURS 06/05/18 10:00 MRSA Culture (Admit) - Final Nose MRSA NOT DETECTED Lab Studies 06/07/18 06/07/18 06/07/18 Range/Units 05:25 05:25 05:15 WBC 8.8 D (4.5-11.0) 10^3/uL RBC 3.76 (3.5-6.1) 10^6/uL Hgb 12.0 L (14.0-18.0) g/dL Hct 36.0 L (42.0-52.0) % MCV 95.7 (80.0-105.0) fl MCH 31.9 (25.0-35.0) pg MCHC 33.3 (31.0-37.0) g/dl RDW 14.2 (11.5-14.5) % Plt Count 132 (120.0-450.0) 10^3/uL MPV 11.5 H (7.0-11.0) fl Gran % 76.9 H (50.0-68.0) % Lymph % (Auto) 16.0 L (22.0-35.0) % Morgan % (Auto) 6.0 (1.0-6.0) % Eos % (Auto) 1.1 L (1.5-5.0) % Baso % (Auto) 0.0 (0.0-3.0) % Gran # 6.79 H (1.4-6.5) Lymph # (Auto) 1.4 (1.2-3.4) Morgan # (Auto) 0.5 (0.1-0.6) Eos # (Auto) 0.1 (0.0-0.7) Baso # (Auto) 0.00 (0.0-2.0) K/mm3 pCO2 39 (35-45) mm/Hg pO2 155.0 H (80-100) mm/Hg HCO3 25.3 (21-28) mmol/L ABG pH 7.42 (7.35-7.45) ABG Total CO2 26.5 (22-28) mmol.L ABG O2 Saturation 100.2 H (95-98) % ABG O2 Content 20.8 (15-23) ML/dl ABG Base Excess 0.9 (-2.0-3.0) mmol/L ABG Hemoglobin 15.0 (11.7-17.4) g/dL ABG Carboxyhemoglobin 1.8 H (0.5-1.5) % POC ABG HHb (Measured) -0.2 L (0-5) % ABG Methemoglobin 1.0 (0.0-3.0) % ABG O2 Capacity 20.8 (16-24) mL/dl Hgb O2 Saturation 97.4 (95.0-98.0) % FiO2 40.0 % Sodium 138 (132-148) mmol/L Potassium 3.6 (3.6-5.0) mmol/L Chloride 108 H (98-107) mmol/L Carbon Dioxide 25 (21-33) mmol/L Anion Gap 9 L (10-20) BUN 7 (7-21) mg/dL Creatinine 0.7 L (0.8-1.5) mg/dl Est GFR ( Amer) > 60 Est GFR (Non-Af Amer) > 60 Random Glucose 95 (70-110) mg/dL Calcium 8.5 (8.4-10.5) mg/dL Phosphorus 2.7 (2.5-4.5) mg/dL Magnesium 2.1 (1.7-2.2) mg/dL Total Bilirubin 0.6 (0.2-1.3) mg/dL AST 24 (17-59) U/L ALT 20 (7-56) U/L Alkaline Phosphatase 49 (38-126) U/L Total Protein 6.3 (5.8-8.3) g/dL Albumin 3.3 (3.0-4.8) g/dL Globulin 2.9 gm/dL Albumin/Globulin Ratio 1.1 (1.1-1.8) Laboratory Results - last 24 hr 06/07/18 06/07/18 06/07/18 05:15 05:25 05:25 WBC 8.8 D RBC 3.76 Hgb 12.0 L Hct 36.0 L MCV 95.7 MCH 31.9 MCHC 33.3 RDW 14.2 Plt Count 132 MPV 11.5 H Gran % 76.9 H Lymph % (Auto) 16.0 L Morgan % (Auto) 6.0 Eos % (Auto) 1.1 L Baso % (Auto) 0.0 Gran # 6.79 H Lymph # (Auto) 1.4 Morgan # (Auto) 0.5 Eos # (Auto) 0.1 Baso # (Auto) 0.00 pCO2 39 pO2 155.0 H HCO3 25.3 ABG pH 7.42 ABG Total CO2 26.5 ABG O2 Saturation 100.2 H ABG O2 Content 20.8 ABG Base Excess 0.9 ABG Hemoglobin 15.0 ABG Carboxyhemoglobin 1.8 H POC ABG HHb (Measured) -0.2 L ABG Methemoglobin 1.0 ABG O2 Capacity 20.8 Hgb O2 Saturation 97.4 FiO2 40.0 Sodium 138 Potassium 3.6 Chloride 108 H Carbon Dioxide 25 Anion Gap 9 L BUN 7 Creatinine 0.7 L Est GFR ( Amer) > 60 Est GFR (Non-Af Amer) > 60 Random Glucose 95 Calcium 8.5 Phosphorus 2.7 Magnesium 2.1 Total Bilirubin 0.6 AST 24 ALT 20 Alkaline Phosphatase 49 Total Protein 6.3 Albumin 3.3 Globulin 2.9 Albumin/Globulin Ratio 1.1 Radiology Impressions: Radiology Impressions Chest X-Ray 06/07/18 06:00 IMPRESSION: No significant interval change compared to the prior examination(s). Critical Care Progress Note - Nutrition Nutrition: Nutrition Category Date Time Status NPO Diet [DIET] Diets 06/05/18 Lunch Ordered Addendum Addendum: 06/07/18 17:44 ICU Attending Addendum Patient seen and examined. Case reviewed on round with housestaff. Agree with resident note above with the following additions/exceptions: 37 year old male with past medical history of seizures who presents in a tonic- clonic seizures requiring intubation plan to wean sedation today given EEG shows he is not in status epilipticus once sedation off and patient more awake will plan to SBT and extubate new RLL infiltrate, unclear etio possibel aspiration cont unasyn check sputum cultures f/u neuro recs for seizures Rest of care as above Homero Romano MD Pulmonary Critical Care and Sleep Medicine
--- NOTE | 2018-06-07 08:46 | PCM.VEEG ---
Video EEG - Procedure Start Date: 06/06/18 Start Time: 09:20 End Date: 06/07/18 End Time: 07:25 Technical Summary: DATA ACQUISITION: This was a multichannel inpatient video-EEG, a minimum of 22 channels were uti lized, performed in accordance with recommendations specified by the [place] [employer] (Dereck Paniagua et al. ACNS Guideline 1: Minimum Technical Requirements for Performing Clinical Electroencephalography. Journal of Clinical Neurophysiology 2016;33:303-7). The 10-20 electrode placement system was utilized in accordance with guidelines detailed by the International Federation of Clinical Neurophysiology (Shanell Neumann et al. The Ten-Twenty Electrode System of the International Federation. Recommendations for the Practice of Clinical Neurophysiology: Guidelines of the International Federation of Clinical Physiology 1999; EEG Suppl. 52.). DATA REVIEW / SPIKE DETECTION / DIGITAL ANALYSIS: The entire EEG was scanned and reviewed. Synchronized audio and video recording were reviewed at the time of each alarm and whenever an abnormality or suspicious activity was noted. The entire recording was analyzed utilizing an automated digital spike and seizure analysis program and all automatic spike and seizure detections were manually reviewed. A compressed spectral array was displayed and reviewed alongside the raw EEG tracings. In addition, further analysis of the EEG was performed when abnormalities were identified, including montage changes, dipole source localization, and frequency band identification. Video portion of the study is necessary to correlate abnormal EEG activity with clinical behavior. This study was attended 24 hours per day. - Interpretation Description of the study: Indication; Status Epilepticus EEG Finding during wakefulness: There was not discernible awake EEG background, during this time the EEG showed diffuse bilateral attenuation with frequencies in the 6 to 7 Hz range that were not properly organized. With stimulation there was minimal reactivity with EEG attenuation and bi frontal artifact. EEG Finding during sleep: Normal sleep architecture was not seen, Interictal non-epileptiform abnormalities: None Interictal epileptiform abnormalities: None Ictal epileptiform abnormalities: NO seizures no PB activations - Impression Impression: This is an abnormal video EEG, monitoring study, due to the presence of: 1- Moderate to severe background slowing, No seizures not in status epilepticus Findings are similar to the first 24 hours INTERPRETATION: The above findings are in keeping with a moderate to severe non specific diffuse disturbance of cortical activity. This is in keeping with a diffuse mcdonald matter dysfunction. The findings do not suggest a specific etiology.
[2018-06-07] MEDS: Enoxaparin 40 mg Syringe SC SCH (09:27)
[2018-06-07] MEDS: Propofol 10 mg/ml 1,000 MG/100 ML VIAL IV PRN (11:57)
--- NOTE | 2018-06-07 12:16 | RAD ---
Date of service: 06/07/2018 HISTORY: Intubated. COMPARISON: June 06, 2018. Procedural time 06:10. FINDINGS: LUNGS: Stable consolidative changes right lower lobe. PLEURA: Stable right pleural effusion inseparable from right lower lobe infiltrate. CARDIOVASCULAR: No atherosclerotic calcification present Normal. OSSEOUS STRUCTURES: No significant abnormalities. VISUALIZED UPPER ABDOMEN: Normal. OTHER FINDINGS: Stable position of endotracheal tube and nasogastric tube. IMPRESSION: No significant interval change compared to the prior examination(s).
[2018-06-07 12:56] VITALS: BP 139/95
--- NOTE | 2018-06-07 15:53 | CP.PCM.PN ---
Subjective - Date & Time of Evaluation Date of Evaluation: 06/07/18 Time of Evaluation: 06:00 - Subjective Subjective: Pt seen and examined. Pt intubated at this time. Objective - Vital Signs/Intake and Output Vital Signs (last 24 hours): Temp Pulse Resp BP Pulse Ox 99.0 F 75 15 139/95 H 100 06/07/18 12:50 06/07/18 12:50 06/07/18 06:01 06/07/18 12:00 06/07/18 12:50 Intake and Output: 06/07/18 06/07/18 06:59 18:59 Intake Total 1688 120 Output Total 1000 Balance 688 120 - Medications Medications: Current Medications Enoxaparin Sodium (Lovenox) 40 mg SC DAILY [facility]; Protocol Last Admin: 06/07/18 09:27 Dose: 40 mg Midazolam 100 mg/100ml in NS (Midazolam 100 Mg/100ml In Ns) 100 mg in 100 mls @ 1 mls/hr IV .Q24H PRN; Protocol PRN Reason: Agitation Last Admin: 06/06/18 04:15 Dose: 5 mg/hr, 5 mls/hr Propofol (Diprivan) 1,000 mg in 100 mls @ 2.368 mls/hr IV .Q24H PRN; Protocol PRN Reason: TITRATE PER MD ORDER Last Titration: 06/07/18 12:58 Dose: 10 mcg/kg/min, 4.736 mls/hr Levetiracetam 750 mg/ Sodium (Chloride) 107.5 mls @ 430 mls/hr IV Q12H [facility] Last Admin: 06/07/18 05:41 Dose: 430 mls/hr Dextrose/Sodium Chloride (Dextrose 5%/0.45% Ns 1000 Ml) 1,000 mls @ 75 mls/hr IV .[id number] [facility] Last Admin: 06/06/18 12:09 Dose: 75 mls/hr Ampicillin Sodium/Sulbactam (Sodium 3 gm/ Sodium Chloride) 100 mls @ 200 mls/hr IVPB Q6 [facility]; Protocol Last Admin: 06/07/18 11:52 Dose: 200 mls/hr Levothyroxine Sodium (Synthroid) 88 mcg PO 0600 [facility] Last Admin: 06/07/18 05:42 Dose: 88 mcg Pantoprazole Sodium (Protonix Inj) 40 mg IVP DAILY JIGNESH Last Admin: 06/07/18 09:27 Dose: 40 mg - Labs Labs: 06/07/18 05:25 06/07/18 05:25 - Head Exam Head Exam: ATRAUMATIC, NORMOCEPHALIC - ENT Exam ENT Exam: Mucous Membranes Moist - Respiratory Exam Respiratory Exam: Respiratory Distress, NORMAL BREATHING PATTERN. absent: Accessory Muscle Use - Cardiovascular Exam Cardiovascular Exam: RRR, +S1, +S2. absent: Diastolic murmur - GI/Abdominal Exam GI & Abdominal Exam: Soft, Normal Bowel Sounds - Extremities Exam Extremities Exam: absent: Pedal Edema - Skin Skin Exam: Dry, Intact, Warm Assessment and Plan - Assessment and Plan (Free Text) Assessment: Pt is a 37yo male with a PMH of seizures, hyperthyroid s/p thyroidectomy, b ipolar, IED who presents via EMS after his girlfriend witnessed him having a seizure. Plan: Neuro - ICU performed a sedation holiday, and extubated the pt today, pt doing well at this time - GCS 4T - CT head negative - continue keppra, levetiracetam for seizures - continuous video EEG: abnormal EEG, moderate to severe background slowing - valproate level <11 - seizure precautions, aspiration precautions - Neurology consult, Dr Caraballo Cardio - maintain MAP>65 - hemodynamically stable at this time Pulm - pt extubated, doing well - maintain O2 sats above 92% - keep head of bed elevated to 30 degrees - Chest CT- interval development of RLL PNA and small right pleural effusion. stable position of ET and NG tubes GI - NPO - protonix /Nephro - continue to monitor BUN/ Cr - maintain euvolemia Endocrine - hypothyroid - synthroid 88 - TSH 38 ID - CXR RLL PNA - blood cultures NGTD - MRSA no detected - continue unasyn Heme Onc - monitor for signs of hemodynamic instability - HGB 12.0 Ppx - lovenox - protonix Pt seen, examined, assessment and plan discussed with Dr Nilda Gongora PGY1, Internal Medicine Resident
--- NOTE | 2018-06-07 18:54 | CP.PCM.PN ---
Subjective - Date & Time of Evaluation Date of Evaluation: 06/07/18 Time of Evaluation: 18:45 - Subjective Subjective: AMA Note Patient expressed desire to leave against medical advice. I had extensive discussion with patient in regards to risks of leaving including worsening of known and unknown symptoms, possible permanent disability and . Patient continued to insist on signing out AMA. Patient's significant other, Aby who is listed as the next of kin, was contacted as per wishes of patient. After she had discussion with patient of importance of staying in the hospital for further medical evaluation and treatment, patient continued to persist in signing out AMA. He is alert and oriented x3, moving all extremities spontaneously, breathing without difficulty and without any respiratory distress and has mental capacity. He expresses no suicidal or homicidal ideations. He is speaking calmly and is not aggressive or combative. Patient signed AMA form with nurse present in room. Objective - Vital Signs/Intake and Output Vital Signs (last 24 hours): Temp Pulse Resp BP Pulse Ox 99.0 F 75 15 139/95 H 100 06/07/18 12:50 06/07/18 12:50 06/07/18 06:01 06/07/18 12:00 06/07/18 12:50 Intake and Output: 06/07/18 06/07/18 06:59 18:59 Intake Total 1688 120 Output Total 1000 Balance 688 120 - Medications Medications: Current Medications Enoxaparin Sodium (Lovenox) 40 mg SC DAILY JIGNESH; Protocol Last Admin: 06/07/18 09:27 Dose: 40 mg Midazolam 100 mg/100ml in NS (Midazolam 100 Mg/100ml In Ns) 100 mg in 100 mls @ 1 mls/hr IV .Q24H PRN; Protocol PRN Reason: Agitation Last Admin: 06/06/18 04:15 Dose: 5 mg/hr, 5 mls/hr Propofol (Diprivan) 1,000 mg in 100 mls @ 2.368 mls/hr IV .Q24H PRN; Protocol PRN Reason: TITRATE PER MD ORDER Last Titration: 06/07/18 12:58 Dose: 10 mcg/kg/min, 4.736 mls/hr Levetiracetam 750 mg/ Sodium (Chloride) 107.5 mls @ 430 mls/hr IV Q12H JIGNESH Last Admin: 06/07/18 18:17 Dose: Not Given Dextrose/Sodium Chloride (Dextrose 5%/0.45% Ns 1000 Ml) 1,000 mls @ 75 mls/hr IV .[id number] [facility] Last Admin: 06/06/18 12:09 Dose: 75 mls/hr Ampicillin Sodium/Sulbactam (Sodium 3 gm/ Sodium Chloride) 100 mls @ 200 mls/hr IVPB Q6 JIGNESH; Protocol Last Admin: 06/07/18 18:19 Dose: Not Given Levothyroxine Sodium (Synthroid) 88 mcg PO 0600 [facility] Last Admin: 06/07/18 05:42 Dose: 88 mcg Pantoprazole Sodium (Protonix Inj) 40 mg IVP DAILY [facility] Last Admin: 06/07/18 09:27 Dose: 40 mg - Labs Labs: 06/07/18 05:25 06/07/18 05:25
[2018-06-07 19:37] VITALS: PULSE 76; RESP 19; TEMP 71.8; O2SAT 99
--- NOTE | 2018-06-08 16:56 | CP.PCM.DIS ---
Provider - Provider Date of Admission: 06/05/18 07:29 Attending physician: Jesus Munguia MD Consults: 06/05/18 10:07 Consult [Physician Consult] Routine Comment: Consulting Provider: Gurdeep Caraballo Consulting Physician: Gurdeep Caraballo Reason for Consult: status epilepticus, known to you Time Spent in preparation of Discharge (in minutes): 35 Diagnosis - Discharge Diagnosis (1) Status epilepticus Status: Acute Priority: High Hospital Course - Lab Results Lab Results: Micro Results 06/05/18 20:30 Blood Blood Culture - Preliminary NO GROWTH AFTER 48 HOURS 06/05/18 20:00 Blood Blood Culture - Preliminary NO GROWTH AFTER 48 HOURS 06/05/18 22:00 Urine,Dutta Urine Culture - Final No Growth (<1,000 CFU/ML) 06/05/18 10:00 Nose MRSA Culture (Admit) - Final MRSA NOT DETECTED Most Recent Lab Values WBC 8.8 10^3/uL (4.5-11.0) D 06/07/18 05:25 RBC 3.76 10^6/uL (3.5-6.1) 06/07/18 05:25 Hgb 12.0 g/dL (14.0-18.0) L 06/07/18 05:25 Hct 36.0 % (42.0-52.0) L 06/07/18 05:25 MCV 95.7 fl (80.0-105.0) 06/07/18 05:25 MCH 31.9 pg (25.0-35.0) 06/07/18 05:25 MCHC 33.3 g/dl (31.0-37.0) 06/07/18 05:25 RDW 14.2 % (11.5-14.5) 06/07/18 05:25 Plt Count 132 10^3/uL (120.0-450.0) 06/07/18 05:25 MPV 11.5 fl (7.0-11.0) H 06/07/18 05:25 Gran % 76.9 % (50.0-68.0) H 06/07/18 05:25 Lymph % (Auto) 16.0 % (22.0-35.0) L 06/07/18 05:25 [place] % (Auto) 6.0 % (1.0-6.0) 06/07/18 05:25 Eos % (Auto) 1.1 % (1.5-5.0) L 06/07/18 05:25 Baso % (Auto) 0.0 % (0.0-3.0) 06/07/18 05:25 Gran # 6.79 (1.4-6.5) H 06/07/18 05:25 Lymph # (Auto) 1.4 (1.2-3.4) 06/07/18 05:25 [place] # (Auto) 0.5 (0.1-0.6) 06/07/18 05:25 Eos # (Auto) 0.1 (0.0-0.7) 06/07/18 05:25 Baso # (Auto) 0.00 K/mm3 (0.0-2.0) 06/07/18 05:25 pCO2 39 mm/Hg (35-45) 06/07/18 05:15 pO2 155.0 mm/Hg (80-100) H 06/07/18 05:15 HCO3 25.3 mmol/L (21-28) 06/07/18 05:15 ABG pH 7.42 (7.35-7.45) 06/07/18 05:15 ABG Total CO2 26.5 mmol.L (22-28) 06/07/18 05:15 ABG O2 Saturation 100.2 % (95-98) H 06/07/18 05:15 ABG O2 Content 20.8 ML/dl (15-23) 06/07/18 05:15 ABG Base Excess 0.9 mmol/L (-2.0-3.0) 06/07/18 05:15 ABG Hemoglobin 15.0 g/dL (11.7-17.4) 06/07/18 05:15 ABG Carboxyhemoglobin 1.8 % (0.5-1.5) H 06/07/18 05:15 POC ABG HHb (Measured) -0.2 % (0-5) L 06/07/18 05:15 ABG Methemoglobin 1.0 % (0.0-3.0) 06/07/18 05:15 ABG O2 Capacity 20.8 mL/dl (16-24) 06/07/18 05:15 ABG Potassium 2.7 mmol/L (3.6-5.2) L 06/05/18 18:02 VBG pH 7.32 (7.32-7.43) 06/05/18 11:34 VBG pCO2 45.0 (40-60) 06/05/18 11:34 VBG HCO3 23.2 mmol/l (21-28) 06/05/18 11:34 VBG Total CO2 24.6 mmol.L (22-28) 06/05/18 11:34 VBG O2 Sat (Calc) 96.6 % (40-65) H 06/05/18 11:34 VBG Base Excess -3.1 mmol/L (0.0-2.0) L 06/05/18 11:34 VBG Potassium 4.2 mmol/L (3.6-5.2) 06/05/18 11:34 Hgb O2 Saturation 97.4 % (95.0-98.0) 06/07/18 05:15 Sodium 141.0 mmol/L (132-148) 06/05/18 18:02 Chloride 112.0 mmol/L (98-107) H 06/05/18 18:02 Glucose 92 mg/dl (75-110) 06/05/18 18:02 Lactate 0.8 mmol/L (0.7-2.1) 06/05/18 18:02 Mechanical Rate 20 06/05/18 18:02 FiO2 40.0 % 06/07/18 05:15 Tidal Volume 450 06/05/18 18:02 PEEP 5 06/05/18 18:02 Sodium 138 mmol/L (132-148) 06/07/18 05:25 Potassium 3.6 mmol/L (3.6-5.0) 06/07/18 05:25 Chloride 108 mmol/L (98-107) H 06/07/18 05:25 Carbon Dioxide 25 mmol/L (21-33) 06/07/18 05:25 Anion Gap 9 (10-20) L 06/07/18 05:25 BUN 7 mg/dL (7-21) 06/07/18 05:25 Creatinine 0.7 mg/dl (0.8-1.5) L 06/07/18 05:25 Est GFR ( Amer) > 60 06/07/18 05:25 Est GFR (Non-Af Amer) > 60 06/07/18 05:25 Random Glucose 95 mg/dL (70-110) 06/07/18 05:25 Calcium 8.5 mg/dL (8.4-10.5) 06/07/18 05:25 Phosphorus 2.7 mg/dL (2.5-4.5) 06/07/18 05:25 Magnesium 2.1 mg/dL (1.7-2.2) 06/07/18 05:25 Total Bilirubin 0.6 mg/dL (0.2-1.3) 06/07/18 05:25 AST 24 U/L (17-59) 06/07/18 05:25 ALT 20 U/L (7-56) 06/07/18 05:25 Alkaline Phosphatase 49 U/L (38-126) 06/07/18 05:25 Total Creatine Kinase 271 U/L (35-230) H 06/05/18 12:35 CK-MB (CK-2) 1.6 ng/mL (0.0-3.6) 06/05/18 12:35 CK-MB (CK-2) % Cancelled 06/05/18 12:35 Total Protein 6.3 g/dL (5.8-8.3) 06/07/18 05:25 Albumin 3.3 g/dL (3.0-4.8) 06/07/18 05:25 Globulin 2.9 gm/dL 06/07/18 05:25 Albumin/Globulin Ratio 1.1 (1.1-1.8) 06/07/18 05:25 Procalcitonin < 0.05 NG/ML (0.19-0.49) L 06/05/18 20:00 Free T4 0.58 ng/dL (0.78-2.19) L 06/05/18 15:00 TSH 3rd Generation 38.00 mIU/mL (0.46-4.68) H 06/06/18 05:30 Arterial Blood Potassium 2.7 mmol/L (3.6-5.2) L 06/05/18 18:02 Venous Blood Potassium 4.2 mmol/L (3.6-5.2) 06/05/18 11:34 Urine Color Yellow (YELLOW) 06/05/18 08:05 Urine Appearance Clear (CLEAR) 06/05/18 08:05 Urine pH 6.0 (4.7-8.0) 06/05/18 08:05 Ur Specific [place] >= 1.030 (1.005-1.035) 06/05/18 08:05 Urine Protein Trace mg/dL (<30 mg/dL) H 06/05/18 08:05 Urine Glucose (UA) 500 mg/dL (NEGATIVE) H 06/05/18 08:05 Urine Ketones Negative mg/dL (NEGATIVE) 06/05/18 08:05 Urine Blood Moderate (NEGATIVE) H 06/05/18 08:05 Urine Nitrate Negative (NEGATIVE) 06/05/18 08:05 Urine Bilirubin Negative (NEGATIVE) 06/05/18 08:05 Urine Urobilinogen 0.2 E.U./dL (<1 E.U./dL) 06/05/18 08:05 Ur Leukocyte Esterase Negative [place]/uL (NEGATIVE) 06/05/18 08:05 Urine RBC 15 - 20 /hpf (0-2) H 06/05/18 08:05 Urine WBC 0 - 2 /hpf (0-6) 06/05/18 08:05 Ur Epithelial Cells None /hpf (0-5) 06/05/18 08:05 Urine Bacteria Mod /hpf (NONE) 06/05/18 08:05 Urine Opiates Screen Negative (NEGATIVE) 06/05/18 08:05 Urine Methadone Screen Negative (NEGATIVE) 06/05/18 08:05 Ur Barbiturates Screen Positive (NEGATIVE) H 06/05/18 08:05 Valproic Acid 11 ug/mL (50.0-100.0) L 06/05/18 06:25 Ur Phencyclidine Scrn Negative (NEGATIVE) 06/05/18 08:05 Ur Amphetamines Screen Negative (NEGATIVE) 06/05/18 08:05 U Benzodiazepines Scrn Negative (NEGATIVE) 06/05/18 08:05 U Oth Cocaine Metabols Negative (NEGATIVE) 06/05/18 08:05 U Cannabinoids Screen Positive (NEGATIVE) H 06/05/18 08:05 - Hospital Course Hospital Course: Upon Arrival Pt is a 37yo male with a PMH of seizures, hyperthyroid s/p thyroidectomy, bipolar, IED who presents via EMS after his girlfriend witnessed him having a seizure. Majority of history was obatained from pt girlfriend and also from chart review. Pt presented to the emergency department after being intubated before arrival. Pt has had 2 seizures in the past, which started in 2014. Since being diagnosed and initiating treatment, pt has not experienced any seizures. Pt has recently started to take Keppra for newly diagnosed bipolar disorder. Pt reportedly bite his tongue during his seizure. Hospitalization Pt was admitted to the ICU and his GCS was 4T. CT head negative for acute pathology. Pt was continued on keppra, levetiracetam for seizures. Continuous video EEG: abnormal EEG, moderate to severe background slowing. Valproate level <11. Pt was placed on seizure precautions, aspiration precautions and Neurology consult, Dr Caraballo. Chest CT- interval development of RLL PNA and small right pleural effusion and stable position of ET and NG tubes. CXR showed a RLL PNA, blood cultures showed no growth, continued unasyn. ICU performed a sedation holiday, and extubated the pt. Discharge Pt signed out AMA before a complete work up could be performed. Pt had mental capacitance at the time of his AMA - Date & Time of H&P Date of H&P: 06/07/18 Time of H&P: 06:00 Discharge Exam - Head Exam Head Exam: ATRAUMATIC, NORMOCEPHALIC - Eye Exam Eye Exam: PERRL - ENT Exam ENT Exam: Mucous Membranes Moist - Respiratory Exam Respiratory Exam: Respiratory Distress. absent: Accessory Muscle Use - Cardiovascular Exam Cardiovascular Exam: RRR, +S1, +S2. absent: Diastolic murmur, Systolic Murmur - GI/Abdominal Exam GI & Abdominal Exam: Normal Bowel Sounds, Unremarkable - Skin Skin Exam: Dry, Intact, Warm Discharge Plan - Follow Up Plan Condition: CRITICAL Disposition: AGAINST MEDICAL ADVICE Instructions: Epilepsy (DC), Epilepsy (GEN)
== END 2018-06-07 18:30 | disposition left against medical advice (07) | DRG 532 ==
LOC: ED 06:22 → ERH 07:29 → CCU 09:16
PROVIDERS: ADMIT Internal Medicine; ATTEND Hospitalist
PROC: 5A1945Z Respiratory Ventilation, 24-96 Consecutive Hours (ICD-10-PCS; principal; 2018-06-05)
PROC: 0BH17EZ Insertion of Endotracheal Airway into Trachea, Via Natural or Artificial Opening (ICD-10-PCS; 2018-06-05)
DX: G40.201 Localization-related (focal) (partial) symptomatic epilepsy and epileptic syndromes with complex partial seizures, not intractable, with status epilepticus (principal); J18.1 Lobar pneumonia, unspecified organism; E87.4 Mixed disorder of acid-base balance; R06.03 Acute respiratory distress; E89.0 Postprocedural hypothyroidism; F12.90 Cannabis use, unspecified, uncomplicated; F31.9 Bipolar disorder, unspecified; R94.01 Abnormal electroencephalogram [EEG]; Z91.19 Patient's noncompliance with other medical treatment and regimen; Z83.3 Family history of diabetes mellitus

== ENCOUNTER 2018-06-09 00:39 | Emergency (ER) | payer OTHER ==
[2018-06-09 00:39] VITALS: BMI 25.5
[2018-06-09 00:59] VITALS: TEMP 98.7
--- NOTE | 2018-06-09 01:22 | ED PDOC ---
Arrival/HPI - General Chief Complaint: Seizure Time Seen by Provider: 06/09/18 00:41 Historian: Patient - History of Present Illness Narrative History of Present Illness (Text): 06/09/18 01:26 A 37 year old male, whose past medical history includes seizure (Keppra), presents to the emergency department complaining of difficulty sleeping. Patient reports last seizure was 11/17/2017, and has not had seizure since then. Recently patient had seen his psychiatrist, who diagnosed him with bipolar disorder and prescribed him medication for it. However, after taking the medication, had seizure episode. Called psychiatrist to inform her of what occurred after taking bipolar medication, and was instructed to stop taking it. Since patient was discharged yesterday, patient had been scared to sleep. Patient denies any other complaints at this time. PMD: Dr. Iraida Clolazo Past Medical History - Provider Review Nursing Documentation Reviewed: Yes - Infectious Disease Hx of Infectious Diseases: None - Cardiac Hx Cardiac Disorders: No Hx Angina: No Hx Cardiac Arrhythmia: No Hx Circulatory Problems: No Hx Congestive Heart Failure: No Hx Heart Murmur: No Hx Heart Transplant: No Hx Hypertension: No Hx Internal Defibrillator: No Hx Mitral Valve Prolapse: No Hx Pacemaker: No Hx Peripheral Edema: No Hx Peripheral Vascular Disease: No - Pulmonary Hx Respiratory Disorders: No Hx Asthma: No Hx Bronchitis: No Hx Chronic Obstructive Pulmonary Disease (COPD): No Hx Emphysema: No Hx Pneumonia: No Hx Respiratory Aspiration: No Hx Respiratory Tract Infection: No Hx Sleep Apnea: No Hx Tuberculosis: No - Neurological Hx Seizures: Yes (Epilepsy) - HEENT Hx HEENT Disorder: No Hx Blind: No Hx Cataracts: No Hx Deafness: No Hx Difficulty Chewing: No Hx Epistaxis: No Hx Glaucoma: No Hx Macular Degeneration: No - Renal Hx Renal Disorder: No - Endocrine/Metabolic Hx Endocrine Disorders: Yes Hx Hypothyroidism: Yes (thyroidectomy) - Hematological/Oncological Hx Blood Disorders: No Hx AIDS: No Hx Anemia: No Hx Cancer: No Hx Chemotherapy: No Hx Cirrhosis: No Hx Hepatitis A: No Hx Hepatitis B: No Hx Hepatitis C: No Hx Metastasis: No Hx Shingles: No Hx Unexplained Bleeding: No - Integumentary Hx Dermatological Disorder: No Hx Basal Cell Carcinoma: No Hx Eczema: No Hx Melanoma: No Hx Psoriasis: No Hx Squamous Cell Carcinoma: No - Musculoskeletal/Rheumatological Hx Musculoskeletal Disorders: No Hx Arthritis: No Hx Back Pain: No Hx Degenerative Joint Disease: No Hx Falls: No Hx Fractures: No Hx Gout: No Hx Herniated Disk: No Hx Myasthenia Gravis: No Hx Osteoarthritis: No Hx Osteomyelitis: No Hx Osteoporosis: No Hx Rhabdomyolysis: No Hx Spinal Stenosis: No Hx Unsteady Gait: No - Gastrointestinal Hx Gastrointestinal Disorders: No - Genitourinary/Gynecological Hx Genitourinary Disorders: No - Psychiatric Hx Depression: No Hx Emotional Abuse: No Hx Physical Abuse: No Hx Substance Use: Yes (marijuana) - Surgical History Hx Cardiac Catheterization: No Hx Coronary Stent: No - Suicidal Assessment Feels Threatened In Home Enviroment: No Family/Social History - Physician Review Nursing Documentation Reviewed: Yes Family/Social History: No Known Family HX Smoking Status: Unknown If Ever Smoked Hx Alcohol Use: Yes Hx Substance Use: Yes (marijuana) Hx Substance Use Treatment: Yes Allergies/Home Meds Allergies/Adverse Reactions: Allergies No Known Allergies Allergy (Verified 06/09/18 00:49) Home Medications: Home Meds Medication Instructions Recorded Confirmed Levothyroxine [Synthroid] 75 mcg PO DAILY 06/09/18 06/09/18 levETIRAcetam [Keppra] 500 mg PO BID 06/09/18 06/09/18 Review of Systems - Physician Review All systems were reviewed & negative as marked: Yes - Review of Systems Neurological: absent: Seizure Psychiatric: Anxiety (scared to sleep) Physical Exam - Physical Exam Narrative Physical Exam (Text): Gen: VS reviewed, alert, well developed, well nourished, nontoxic, mild distres s. ENT: normal pharynx. Eye: EOMI, PERRL. Neck: no JVD, supple, no adenopathy. CV: regular rate, regular rhythm, no rubs, no murmur, no gallops, S1, S2, pulses equal and strong. Pulm: no distress, clear to auscultation, no wheeze, no rhonchi, breath sounds equal, no rales. Abd: soft, nontender, no guarding, no rebound, no rigidity, normal bowel sounds. Ext: no edema. Skin: good color, no rash, no cyanosis. Psych: responds appropriately to questions, normal affect. Neuro: oriented x 3, CN2-12 intact grossly, motor intact, sensation intact. Vital Signs Reviewed: Yes Vital Signs Temp Pulse Resp BP Pulse Ox 06/09/18 00:58 98.7 F 88 18 142/91 H 100 Temperature: Afebrile Blood Pressure: Normal Pulse: Regular Respiratory Rate: Normal Appearance: Positive for: Well-Appearing, Non-Toxic, Comfortable Pain Distress: None Mental Status: Positive for: Alert and Oriented X 3 Medical Decision Making ED Course and Treatment: 06/09/18 01:26 Impression: 37 year old male with difficulty sleeping. Plan: -- Labs -- Urinalysis -- Reassess and disposition Progress Notes: 06/09/18 02:19 patient is medically stable for psych eval, admit, transfer if needed 06/09/18 04:49 full psych consulation was refused by P[facility] as the patient did not have a complete medical workup and he signed out against medical advice. admission was refused by dr. blevins as she feels that the patient's current presentation is primarily psych. 06/09/18 07:30 case discussed with jamie goel working with dr. ken, accepts patient for admission to [facility] for inpt tx of insomnia with hx bipolar. patient is stable for psych admission. i recommends medicine consultation. - Scribe Statement The provider has reviewed the documentation as recorded by the Carter Medina Provider Scribe Attestation: All medical record entries made by the Scribe were at my direction and personally dictated by me. I have reviewed the chart and agree that the record accurately reflects my personal performance of the history, physical exam, medical decision making, and the department course for this patient. I have also personally directed, reviewed, and agree with the discharge instructions and disposition. Disposition/Present on Arrival - Present on Arrival Any Indicators Present on Arrival: No History of DVT/PE: No History of Uncontrolled Diabetes: No Urinary Catheter: No History of Decub. Ulcer: No History Surgical Site Infection Following: None - Disposition Have Diagnosis and Disposition been Completed?: Yes Diagnosis: Insomnia, Seizure disorder Disposition: HOSPITALIZED Disposition Time: 07:32 Patient Plan: Admission Patient Problems: Current Active Problems Problem Status Onset Insomnia Acute Seizure disorder Acute Condition: STABLE Referrals: Iraida Youssef MD [Primary Care Provider] - Follow up with primary Forms: [address] ([place])
[2018-06-09 02:10] LABS: BASO # 0.03 K/mm3 (0.0-2.0); BASO % 0.4 % (0.0-3.0); EOS # 0.1 (0.0-0.7); GRAN # 5.82 (1.4-6.5); HEMOGLOBIN 11.6 g/dL (14.0-18.0); LYMPH # 1.6 (1.2-3.4); LYMPH % 19.9 % (22.0-35.0); MEAN CELL VOLUME 94.1 fl (80.0-105.0); MEAN CORPUSCULAR HEMOGLOBIN 32.5 pg (25.0-35.0); MEAN CORPUSCULAR HGB CONC 34.5 g/dl (31.0-37.0); MEAN PLATELET VOLUME 11.2 fl (7.0-11.0); MONO # 0.6 (0.1-0.6); MONO % 7.7 % (1.0-6.0); RBC 3.57 10^6/uL (3.5-6.1); WHITE BLOOD COUNT 8.2 10^3/uL (4.5-11.0)
[2018-06-09 02:16] LABS: ACETAMINOPHEN < 10.0 ug/ml (10.0-20.0); SALICYLATE < 1 mg/dL (2.0-20.0)
[2018-06-09 02:28] LABS: ALB/GLOB RATIO 1.2 (1.1-1.8); ALBUMIN 4.3 g/dL (3.0-4.8); ALT/SGPT 31 U/L (7-56); AST/SGOT 107 U/L (17-59); BLOOD UREA NITROGEN 9 mg/dL (7-21); CALCIUM 9.4 mg/dL (8.4-10.5); GFR NON-AFRICAN AMERICAN > 60
[2018-06-09 02:38] LABS: PH,URINE 6.5 (4.7-8.0); URINE BILIRUBIN NEGATIVE (NEGATIVE); URINE BLOOD NEGATIVE (NEGATIVE); URINE GLUCOSE (UA) NEGATIVE (NEGATIVE); URINE LEUKOCYTE ESTERASE NEGATIVE Leu/uL (NEGATIVE); URINE PROTEIN NEGATIVE mg/dL (<30 mg/dL); URINE UROBILINOGEN >=8.0 E.U./dL (<1 E.U./dL)
[2018-06-09 02:47] LABS: URINE APPEARANCE CLEAR (CLEAR); URINE COLOR YELLOW (YELLOW)
[2018-06-09] MEDS ORDERED: Potassium Chloride 20 mEq ER Tab PO STA (04:30)
[2018-06-09 05:21] LABS: BARBITURATES, UR POSITIVE (NEGATIVE); BENZODIAZEPINES, UR POSITIVE (NEGATIVE); OPIATES, UR NEGATIVE (NEGATIVE); PHENCYCLIDINE, UR NEGATIVE (NEGATIVE)
[2018-06-09 06:23] VITALS: O2SAT 98
[2018-06-09] MEDS ORDERED: LEVETIRACETAM 500 MG PO ONE (08:45)
[2018-06-09 09:01] VITALS: BP 138/92; PULSE 87; RESP 14
== END 2018-06-09 10:02 | disposition home or self-care (01) ==
LOC: ED 00:39 → UNDOADMIN 07:32 → ERH 07:32
DX: G47.00 Insomnia, unspecified (principal); G40.909 Epilepsy, unspecified, not intractable, without status epilepticus